=== PATIENT | female | born 1955 | race Caucasian/White ===

== ENCOUNTER → 2017-12-04 07:48 | Outpatient (CLI) | payer BC, SELFPAY ==
[2017-12-04 10:25] LABS: Anion Gap 6 (5-15); BUN 10 mg/dL (7-18); BUN/Creat Ratio 10.7 RATIO (10-20); Calcium,Total 9.1 mg/dL (8.5-10.1); Chloride 104 mmol/L (98-107); Creatinine, Serum 0.94 mg/dL (0.55-1.02); EST Glomerular Filtration Rate 64 mL/min (>60); Est Glom Filt Rate - Afr Amer 78 mL/min (>60); Glucose 84 mg/dL (74-106); Potassium 4.1 mmol/L (3.5-5.1); Sodium Level 140 mmol/L (136-145); T4 Free Direct 1.05 ng/dL (0.76-1.46); Thyroid Stim Hormone (TSH) 5.16 uIU/mL (0.358-3.74)
== END ==
PROVIDERS: Family Provider Family Medicine; PCP Family Medicine; Visit Provider Family Medicine
DX: I10 Essential (primary) hypertension (principal); E03.9 Hypothyroidism, unspecified
CPT/HCPCS: 36415; 80048; 84439; 84443

== ENCOUNTER → 2018-09-04 | Outpatient (CLI) | payer BC, SELFPAY ==
[2018-09-04 17:57] LABS: T4 Free Direct 1.27 ng/dL (0.76-1.46); Thyroid Stim Hormone (TSH) 1.11 uIU/mL (0.358-3.74)
== END | disposition home or self-care (01) ==
LOC: MFPLAB 16:03
PROVIDERS: Family Provider Family Medicine; PCP Family Medicine; Referring Provider Family Medicine; Visit Provider Family Medicine
DX: E03.9 Hypothyroidism, unspecified (principal)
CPT/HCPCS: 36415; 84439; 84443

== ENCOUNTER → 2019-03-10 | Outpatient (CLI) | payer BC, SELFPAY ==
[2019-03-10 18:17] LABS: Vitamin B12 574 pg/mL (211-911); Vitamin D,25 Hydroxy 23.8 ng/mL (29.95-100.01)
[2019-03-10 18:35] LABS: ALB/GLOB Ratio 1.2 RATIO (0.9-2.4); AST(SGOT) 23 U/L (15-37); Alanine Aminotransfer ALT/SGPT 36 U/L (13-56); Albumin, Serum 3.9 g/dL (3.2-5.0); Alkaline Phosphatase 122 U/L (45-117); Anion Gap 7 (5-15); BUN 22 mg/dL (7-18); BUN/Creat Ratio 26.1 RATIO (10-20); Calcium,Total 9.2 mg/dL (8.5-10.1); Chloride 103 mmol/L (98-107); Cholesterol 183 mg/dL (200); Creatinine, Serum 0.84 mg/dL (0.55-1.02); EST Glomerular Filtration Rate 72 mL/min (>60); Est Glom Filt Rate - Afr Amer 88 mL/min (>60); Globulin 3.3 g/dL (2.2-4.2); Glucose 88 mg/dL (74-106); High Density Lipoprotein 58 mg/dL; Potassium 4.4 mmol/L (3.5-5.1); Protein, Total 7.2 g/dL (6.4-8.2); Sodium Level 136 mmol/L (136-145); T4 Free Direct 1.07 ng/dL (0.76-1.46); Thyroid Stim Hormone (TSH) 3.48 uIU/mL (0.358-3.74); Triglycerides 319 mg/dL; Very Low Density Lipoprotein 64 mg/dL (5-40)
== END | disposition home or self-care (01) ==
LOC: MFPLAB 16:09
PROVIDERS: Family Provider Family Medicine; PCP Family Medicine; Visit Provider Family Medicine
DX: E03.9 Hypothyroidism, unspecified (principal); I10 Essential (primary) hypertension; F32.9 Major depressive disorder, single episode, unspecified; R40.0 Somnolence
CPT/HCPCS: 36415; 80053; 80061; 82306; 82607; 84439; 84443

== ENCOUNTER → 2020-09-12 17:04 | Outpatient (CLI) | payer BC, SELFPAY ==
--- NOTE | 2020-09-12 17:08 | RAD_ITS ---
STUDY: X-RAY - LEFT SHOULDER REASON FOR EXAM: Female, 65 years old. PAIN TECHNIQUE: 4 view(s) of the shoulder. COMPARISON: None. FINDINGS: There is severe degenerative arthrosis of the glenohumeral articulation. There is degenerative arthrosis of the acromioclavicular joint without inferior osseous spur formation. Normal acromion. Normal humeral head and visualized proximal humerus. The soft tissue structures are unremarkable. There is no demonstrated fracture. Normal visualized pulmonary apex. RAD/Shoulder min 2 Views IMPRESSION: Advanced degenerative disease as described. Electronically Signed: Ania Fisher MD at 2:11 EDT , Service support ,
--- NOTE | 2020-09-12 17:08 | RAD_ITS ---
STUDY: X-RAY - CERVICAL SPINE REASON FOR EXAM: Female, 65 years old. PAIN TECHNIQUE: 7 view(s) of the cervical spine were obtained, including flexion-extension views. COMPARISON: None FINDINGS: Normal anterior atlantoaxial articulation. Normal odontoid process. Normal cervical lordosis. There is multi-level endplate spondylosis. There is multi-level degenerative disc disease with multilevel disc space narrowing. There is multi-level osseous foraminal stenosis. The soft tissue structures are unremarkable. There is no demonstrated fracture of the cervical spine. There is mild anterior subluxation of C3 on C4 (2 mm) upon flexion with normal alignment on neutral and extension views. RAD/Cerv Spine Obl/Flex/Ext Comp IMPRESSION: Multilevel disc degenerative disease as described with no acute fracture or subluxation on neutral positioning. Mild anterior subluxation of C3 on C4 (2 mm) upon flexion. Electronically Signed: Ania Fisher MD at 2:10 EDT , Service support ,
== END ==
PROVIDERS: PCP Family Medicine; Referring Provider Family Medicine; Visit Provider Family Medicine
DX: M25.512 Pain in left shoulder (principal)
CPT/HCPCS: 72052; 73030

== ENCOUNTER 2021-05-04 14:30 | Outpatient (RCR) | payer MEDICARE, SELFPAY ==
[2021-04-27 14:40] VITALS: BP 163/100; PULSE 83; RESP 16; TEMP 36; BMI 45.6
--- NOTE | 2021-04-27 18:41 | PCM.WC.HP ---
History of Present Illness Date of Service: 04/27/21 Chief Complaint: Nonhealing venous leg ulcer left lower extremity History of Wound: This is a 65-year-old female who presents to the wound healing center today with complaint of a nonhealing venous leg ulcer to her left lower extremity. She has a past medical history significant for obesity, COPD, hypertension, depression anxiety, spinal stenosis, and tobacco use currently smoking 2 packs/day. The patient states that approximately 2 months ago she tripped and hit the edge of a cement step onto her left lower extremity. She describes at first it was a hematoma and then slowly opened up and has been draining copious amounts of foul-smelling clear to yellow discharge. She has been seen by her primary care for this who the patient states has placed her on 3 rounds of antibiotics but has not had any cultures done. Most recently she has been packing with Xeroform. She has not been utilizing compression though she does have a history of chronic lower extremity edema. She denies any systemic signs of infection at this time such as fever or chills. She denies any other acute concerns at this time. Past medical, family, and social history reviewed and not pertinent to the current visit and all other systems reviewed and negative with exception of those listed above. [facility] Medical History (Updated 04/28/21 @ 11:51 by Thomas Burnham NP, [employer]) Depression with anxiety HTN (hypertension) Morbid obesity Tobacco abuse Venous insufficiency Venous stasis ulcer with varicose veins of left lower extremity Home Medications [id number] 1 inh INHALATION DAILY 04/27/21 [History Last Taken Unknown] hydrochlorothiazide 25 mg PO DAILY 04/27/21 [History Last Taken Unknown] hydrocodone-acetaminophen [Ida] 1 tab PO TID PRN 04/27/21 [History Last Taken Unknown] sertraline 100 mg PO DAILY 04/27/21 [History Last Taken Unknown] Allergy/AdvReac Type Severity Reaction Status Date / Time Penicillins Allergy Hives Verified 04/27/21 15:02 Social History Smoking Status: Current every day smoker ROS ROS Narrative Negative x10 systems with exception of those listed above Vital Signs Vital Signs Vital Signs: 04/27/21 14:40 Temperature 96.8 F L Temperature Source Temporal Pulse Rate 83 Respiratory Rate 16 Blood Pressure 163/100 H Blood Pressure Mean 121 Blood Pressure Source Monitor Blood Pressure Position Sitting Blood Pressure Location Right Arm Weight Weight: 300 lb Body Mass Index (BMI) 45.6 Physical Exam Const alert, oriented x3, no apparent distress, healthy appearing and well nourished Constitutional Narrative: Patient appears disheveled and unkempt General Appearance: cooperative Exam Limitations: no limitations Nutritional Appearance: morbidly obese HEENT normocephalic Head and Scalp: normal to inspection Mouth: oral and palatal mucosa normal Eyes General Eye: normal appearance of both eyes Resp normal respiratory effort, normal air movement and no use of accessory muscles Effort and Inspection: able to speak in complete sentences Auscultation: clear to auscultation bilaterally Cardio regular rate, regular rhythm, S1 normal heart sound, S2 normal heart sound, no murmurs and peripheral pulses 2+ throughout Palpation: normal PMI Rate: regular rate Heart Sounds: S1 normal and S2 normal GI normal to inspection, nondistended, normoactive bowel sounds, soft to palpation, non-tender and non-distended Palpation: soft Extremity normal to inspection and full ROM General Extremity: normal exam except as noted Skin Skin Narrative: 2+ pitting edema bilateral lower extremities, peripheral pulses are 2+, there is a large venous ulceration to left lower extremity with large amount of adherent slough and foul-smelling drainage, multiple areas of tunneling and undermining throughout the wound. Areas of tendon are exposed does not probe to bone however at this time. No erythema warmth or streaking to the surrounding tissue at this time however Neuro oriented x3 and moves all extremities Sensorium / Orientation: awake, alert, oriented to person, oriented to place and oriented to time Psych mental status grossly normal, thought process normal and denies hallucinations Appearance: grossly normal Attitude: calm Activity / Motor Behavior: appropriate eye contact Speech: normal speech Thought Process: normal thought process Thought Content: normal thought content Attention / Concentration: attention grossly intact Insight: insight good Judgement: judgement good Debridement Note Debridement Note Wound debrided: Right venous leg ulcer Laterality: Right Type of Debridement: Selective debridement Anesthesia Used: 5% Lidocaine Gel Depth: Down to and including healthy tissue and in the subcutaneous layer Percentage of wound debrided: 100 Instrument Used: 5mm curette Tissue Removed: Slough and devitalized tissue Severity: Necrosis of Muscle Amount of bleeding with debridement: Mild Bleeding Controlled with: Pressure and Compression and gauze Patient tolerated procedure: Patient tolerated procedure well Post-Debridement Measurements and Additional Note: Post-Debridement Measurements/Treatment DMITRI - Nurse 1 - General Ulcer Assessment Start: 04/27/21 14:35 Freq: Status: Active Protocol: MAURA Activity Type Activity Date Activity User E-Sign Co-Sign Detail Recorded Client Recorded Date Recorded By Document 04/27/21 14:40 ALBERT [id number] 04/27/21 14:42 ALBERT Edit Result 04/27/21 14:40 JF (1) [id number] 04/27/21 15:00 JF (1) Right - Posterior Tibial Palpable => Yes - Posterior Tibial Doppler => Multiphasic - Dorsalis Pedis Palpable => Yes - Dorsalis Pedis Doppler => Multiphasic - Hair Growth on Legs => No - Hair Growth on Toes => No - Temperature of Extremity => Warm - Capillary Refill => Less than 3 => Seconds - Dependent Rubor => Yes - Other Deformity => No - Prior Foot Ulcer => No - Charcot Joint => No - Prior Amputation => No - Thick => Yes - Discolored => Yes - Deformed => Yes - Improper Length & Hygeine => Yes Left - Posterior Tibial Palpable => Yes - Posterior Tibial Doppler => Multiphasic - Dorsalis Pedis Palpable => Yes - Dorsalis Pedis Doppler => Multiphasic - Extremity Color => Red - Hair Growth on Legs => Yes - Hair Growth on Toes => No - Temperature of Extremity => Warm - Capillary Refill => Less than 3 => Seconds - Dependent Rubor => Yes - Other Deformity => No - Prior Foot Ulcer => No - Charcot Joint => No - Prior Amputation => No - Thick => Yes - Discolored => Yes - Deformed => No - Improper Length & Hygeine => Yes Preferred language => Latvian Preferences => Verbal, => Demonstration Barriers to Learning => None Readiness To Learn => Excellent Willingness to Engage in Self Management => High Activies Readiness to Engage in Self Management => High Activities Anxiety Level => Calm Cooperation => Cooperative Perception => Coherent Interest in Health Problem => Asks Questions Education Importance => Acknowledges Need Does Patient Smoke tobacco or other => Yes substances Smoking Status => Current every day => smoker Is Patient Diabetic => No Recent Decline in Ability to Perform => Denies Any => Declines Assistive Device With Patient => walker Cultural/Buddhism Needs that may affect => No Treatment Plan Would you allow our hospital exploration driller to => No meet you for the purpose of spiritual/ emotional support? Locomotive Engineer [employer] to contact place of [employer] => No *Debridement - Person Taught => Patient - Teaching Method => Discussion, => Demonstration - Response to teaching => Return => demonstration, => Verbalize => understanding 04/27/21 14:40 WC - Today's Visit Information Type of service Initial Visit Arrival Mode Ambulatory, Walker Patient Identification Verified (Name & Yes ) Patient Requires Transmission-Based No Precautions Height and Weight Height 5 ft 8 in Weight 300 lb Weight in Pounds 300.0 lbs Body Mass Index (BMI) 45.6 BMI Classification Obese BSA - Eva 2.43 Vital Signs Temperature (97.8 F-99.1 F) 96.8 F L Temperature Source Temporal Pulse Rate (60-100) 83 Pulse Location Monitor Respiratory Rate (12-18) 16 Respiratory rate source Observation Blood Pressure (90/60-120/80) 163/100 H Blood Pressure Mean 121 Source Monitor Position Sitting Blood Pressure Location Right Arm History Since Last Visit- (Skip if this is Patient's initial visit) Left Footwear Regular Shoe Right Footwear Regular Shoe Pain Scale: 0-10 Numeric Is Patient Pain Free? Yes Lower Extremity Assessment/ Foot Assessment/ Toe Nail Assessment Right -Posterior Tibial Palpable Yes -Posterior Tibial Doppler Multiphasic -Dorsalis Pedis Palpable Yes -Dorsalis Pedis Doppler Multiphasic -Hair Growth on Legs No -Hair Growth on Toes No -Temperature of Extremity Warm -Capillary Refill Less than 3 Seconds -Dependent Rubor Yes -Other Deformity No -Prior Foot Ulcer No -Charcot Joint No -Prior Amputation No -Thick Yes -Discolored Yes -Deformed Yes -Improper Length & Hygeine Yes Left -Posterior Tibial Palpable Yes -Posterior Tibial Doppler Multiphasic -Dorsalis Pedis Palpable Yes -Dorsalis Pedis Doppler Multiphasic -Extremity Color Red -Hair Growth on Legs Yes -Hair Growth on Toes No -Temperature of Extremity Warm -Capillary Refill Less than 3 Seconds -Dependent Rubor Yes -Other Deformity No -Prior Foot Ulcer No -Charcot Joint No -Prior Amputation No -Thick Yes -Discolored Yes -Deformed No -Improper Length & Hygeine Yes Communication Assessment Preferred language Latvian Teaching Assessment Preferences Verbal, Demonstration Barriers to Learning None Readiness To Learn Excellent Willingness to Engage in Self Management High Activies Readiness to Engage in Self Management High Activities Anxiety Level Calm Cooperation Cooperative Perception Coherent Interest in Health Problem Asks Questions Education Importance Acknowledges Need Does Patient Smoke tobacco or other Yes substances Smoking Status Current every day smoker Is Patient Diabetic No Functional Assessment Recent Decline in Ability to Perform Denies Any Declines Assistive Device With Patient walker Culture/Buddhism/Locomotive Engineer [employer] Cultural/Buddhism Needs that may affect No Treatment Plan Would you allow our hospital exploration driller to No meet you for the purpose of spiritual/ emotional support? Locomotive Engineer Electric to contact place of [employer] No Teaching: Wound Center *Debridement -Person Taught Patient -Teaching Method Discussion, Demonstration -Response to teaching Return demonstration, Verbalize understanding WC - Nurse 1 - General Ulcer Measurement Start: 04/27/21 14:35 Freq: Status: Active Protocol: Activity Type Activity Date Activity User E-Sign Co-Sign Detail Recorded Client Recorded Date Recorded By Document 04/27/21 14:42 [id number] 04/27/21 14:55 04/27/21 14:42 Wound Center Nurse 1 1-left verdugo -Combined with other wound No -Current Size (cm) - Length 3.9 -Current Size (cm) - Width 5.1 -Current Size (cm) - Depth 2.8 -Total Square Cm 19.89 -Photo Taken Yes -Epithelialization Small 1-33% -Tunneling No -Undermining/Tunneling No -Circular Undermining No -Exudate Amt Large -Exudate Type Serosanguineous -Wound Margin Flat & Intact -Granulation Amt None Present (0 %) -Slough/Fibrin Yes -Necrosis Amt Large (67-100%) -Necrotic Tissue Type Necrosis of Muscle -Structure Exposed N/A -Texture (Екатерина-wound Skin Appearance) Assessed, Localized Edema -Moisture (Екатерина-wound Skin Appearance) Assessed,Dry/ Scaly -Color (Екатерина-wound Skin Appearance) Assessed -Temperature (Екатерина-wound Skin No Abnormality Appearance) (Pt Warm) -Tenderness on Palpation (Екатерина-wound No Skin Appearance) -Ulcer Cleansing Wound Cleanser -Foul Odor after Cleansing No -Anesthetic Used 4% Lidocaine Solution Lower Limb Edema Present Yes Right Calf (cm) 55.8 Right Ankle (cm) 31.7 Left Calf (cm) 55 Left Ankle (cm) 30 WC - Nurse 2 - General Ulcer CM Notes Start: 04/27/21 14:35 Freq: Status: Active Protocol: Activity Type Activity Date Activity User E-Sign Co-Sign Detail Recorded Client Recorded Date Recorded By Document 04/27/21 15:11 MW [id number] 04/27/21 15:21 MW Edit Result 04/27/21 15:11 MW (1) [id number] 04/28/21 06:47 PL (1) 1-left verdugo - Debridement, Muscle/Fascia, ea addt'l => 1 20sq cm or part thereof 04/27/21 15:11 Wound Center Nurse 2 1-left verdugo -Time 15:11 -Correct Patient Yes -Correct Side, Site, Position Yes -Correct Procedure Yes -Procedure Performed Yes -Type of Procedure Debridement -Clinical Debridement Muscle / Fascia -Tissue Removed Muscle,Fascia -Post Debridement (cm) - Length 5.5 -Post Debridement (cm) - Width 5.5 -Post Debridement (cm) - Depth 4.0 -Total Square (Post) (cm) 30.25 -Area of Debridement (cm) - Length 0.5 -Area of Debridement (cm) - Width 5.5 -Total Square (Area) (cm) 2.75 -Tunneling No -Undermining/Tunneling No -Circular Undermining No -Wound/Ulcer Outcome Not Healed -Ulcer Cleansing Rinsed/ Irrigated with Saline -Foul Odor after Cleansing No -Bioengineered Tissue No -Bleeding Controlled with Pressure -Offloading No -Treatment Response Procedure Tolerated Well -Debridement - Muscle / Fascia, 1st Yes 20sq cm -Debridement, Muscle/Fascia, ea addt'l 1 20sq cm or part thereof Pain Scale: 0-10 Numeric Is Patient Pain Free? Yes - Nurse 3 - General Ulcer D/C NN Start: 04/27/21 14:35 Freq: Status: Active Protocol: Activity Type Activity Date Activity User E-Sign Co-Sign Detail Recorded Client Recorded Date Recorded By Document 04/27/21 15:36 [id number] 04/27/21 15:36 JF 04/27/21 15:36 Wound Care Nurse 3 1-left verdugo -Ulcer Cleansing Rinsed/ Irrigated with Saline -Foul Odor after Cleansing No -Primary Dressing Applied Aquacel Rope -Primary Dressing Covered/Secured with Dry Gauze & Roll Gauze, Secured with Tape -Aquacel Rope 1 Left -Tubular Bandage Double Layer -Size of Tubigrip Used Size F -Size F ($) 2 Pain Scale: 0-10 Numeric Is Patient Pain Free? Yes WC - Visit Discharge Discharge Condition Stable Ambulatory Status Ambulatory, Walker Transportation Private Auto Medication Reconcilliation completed & Yes provided to patient/care provider Clinical Summary of Care Provided Yes Charges/Coding Visit Charges Office Visits / Consults: 12730 OV L4 New Procedures Integumentary 111xxx-113xx: 24935 Anusha musc/fascia 20 sq cm/< Add On Codes: 17272 Anusha musc/fascia add-on Assessment/Plan Assessment/Plan (1) Venous stasis ulcer with varicose veins of left lower extremity: CODE(S): I83.029 - Varicose veins of left lower extremity with ulcer of unspecified site; L97.929 - Non-pressure chronic ulcer of unspecified part of left lower leg with unspecified severity (2) Morbid obesity: CODE(S): E66.01 - Morbid (severe) obesity due to excess calories (3) HTN (hypertension): CODE(S): I10 - Essential (primary) hypertension (4) Tobacco abuse: CODE(S): Z72.0 - Tobacco use (5) Depression with anxiety: CODE(S): F41.8 - Other specified anxiety disorders (6) Venous insufficiency: CODE(S): I87.2 - Venous insufficiency (chronic) (peripheral) PLAN: Debridement performed today in clinic as annotated above. Aquacel Ag rope cover with gauze applied. At home wound-care instructions: Daily application of Aquacel Ag rope cover with gauze and also rinse daily with Dakin's solution, Change dressing once daily or more frequently as needed due to contamination. Wash wounds daily with antibacterial soap and water, rinse and dry thoroughly before each dressing change. Compression: Double layer Tubigrip's Off-loading: The patient was instructed to avoid pressure and friction on the affected areas. Reposition every 2 hours at minimum. Avoid prolonged standing and/or dangling of legs. When seated, feet should be elevated at chest level. Frequent ambulation is encouraged. Diet: Patient encouraged to increase protein intake while taking caution to avoid high carbohydrate and/or sugar intake. Smoking: The risks of smoking and benefits of smoking cessation were discussed with the patient today. The patient is encouraged to quit smoking. If smoking cessation aids are desired, the patient should contact their primary care provider to discuss appropriate options. Patient is smoking an excessive amount 2 packs/day, instructed patient that this is definitely leading to delayed wound healing. Labs/cultures/imaging: Cultures ordered and collected today. Routine baseline lab work ordered. Vascular studies ordered. Imaging ordered of the left lower extremity to rule out osteomyelitis. Discussed in detail with patient that if any of her symptoms worsen she should go to the emergency department. Follow-up: Return to clinic in 1 week for re-evaluation. Return sooner or report to the emergency room should symptoms worsen, or new symptoms arise. This note was generated with achvr dictation software. It may contain incorrect words, spelling, and punctuation that were not noted in checking the note before signing. I have spent 55 minutes today reviewing labs, records, and history. Time includes coordinating care, interpretation of tests, and counseling the patient/family. This also includes time I spent with the patient for exam, treatment plan, and education as well as documenting clinical information in the electronic health record.
--- NOTE | 2021-05-01 13:45 | RAD_ITS ---
STUDY: X-RAY - LEFT TIBIA AND FIBULA REASON FOR EXAM: Female, 65 years old. LT SKIN ULCER - OSTEOMY LITIS TECHNIQUE: 2 view(s) of the tibia and fibula were obtained. COMPARISON: None. FINDINGS: Normal visualized tibia. Normal visualized fibula. Diffuse soft tissue swelling. Laceration is seen overlying the anterior pretibial soft tissues distally. RAD/Tibia & Fibula 2 Views IMPRESSION: No bony abnormalities seen. Diffuse soft tissue swelling with evidence of laceration overlying the anterior distal aspect of the tibia. Electronically Signed: Luis Basilio MD at 14:31 EST , Service support ,
--- NOTE | 2021-05-02 10:15 | WC ---
Wound culture results from 04/28/21 reviewed per Thomas Burnham NP. Cipro and Bactrim DS sent to [facility] in [place], [place] per Thomas. Message left for patient to notify and return call with any questions.
[2021-05-04 15:11] VITALS: BP 153/86; PULSE 93; RESP 16; TEMP 35.7; BMI 45.6
--- NOTE | 2021-05-04 16:18 | PN.PCM_ITS ---
History of Present Illness Date of Service: 05/04/21 Chief Complaint: Nonhealing venous leg ulcer left lower extremity History of Wound: This is a 65-year-old female who presents to the wound healing center today with complaint of a nonhealing venous leg ulcer to her left lower extremity. She has a past medical history significant for obesity, COPD, hypertension, depression anxiety, spinal stenosis, and tobacco use currently smoking 2 packs/day. The patient states that approximately 2 months ago she tripped and hit the edge of a cement step onto her left lower extremity. She describes at first it was a hematoma and then slowly opened up and has been draining copious amounts of foul-smelling clear to yellow discharge. She has been seen by her primary care for this who the patient states has placed her on 3 rounds of antibiotics but has not had any cultures done. Most recently she has been packing with Xeroform. She has not been utilizing compression though she does have a history of chronic lower extremity edema. She denies any systemic signs of infection at this time such as fever or chills. She denies any other acute concerns at this time. Past medical, family, and social history reviewed and not pertinent to the current visit and all other systems reviewed and negative with exception of those listed above. Progress of Wound: Stable?patient does states that the smell has improved, wound cultures were reviewed and showed Serratia, staph aureus, Bacteroides and Alcaligenes, patient was started on Cipro and Bactrim which she is tolerating, she has not been utilizing the Dakin's solution Objective Data Objective Data Vital Signs: Vital Signs Temp Pulse Resp BP 96.3 F L 93 16 153/86 H 05/04/21 15:11 05/04/21 15:11 05/04/21 15:11 05/04/21 15:11 Oxygen Delivery Method Room Air Weight: 300 lb Body Mass Index (BMI) 45.6 Lab / Micro Data Micro: Microbiology 04/28/21 15:20 Wound Abcess - Leg, Left Gram Stain - Final 04/28/21 15:20 Wound Abcess - Leg, Left Wound Culture - Final Serratia marcescens Staphylococcus aureus Alcaligenes faecalis ssp faeca 04/28/21 15:20 Wound Abcess - Leg, Left Anaerobic Culture - Final Bacteroides fragilis Charges/Coding Procedures Integumentary 111xxx-113xx: [id number] Anusha subq tissue 20 sq cm/< Physical Exam Const alert, oriented x3, no apparent distress, healthy appearing and well nourished Constitutional Narrative: Patient appears disheveled and unkempt General Appearance: cooperative Exam Limitations: no limitations Nutritional Appearance: morbidly obese HEENT normocephalic Head and Scalp: normal to inspection Mouth: oral and palatal mucosa normal Eyes General Eye: normal appearance of both eyes Resp normal respiratory effort, normal air movement and no use of accessory muscles Effort and Inspection: able to speak in complete sentences Auscultation: clear to auscultation bilaterally Cardio regular rate, regular rhythm, S1 normal heart sound, S2 normal heart sound, no murmurs and peripheral pulses 2+ throughout Palpation: normal PMI Rate: regular rate Heart Sounds: S1 normal and S2 normal GI normal to inspection, nondistended, normoactive bowel sounds, soft to palpation, non-tender and non-distended Palpation: soft Extremity normal to inspection and full ROM General Extremity: normal exam except as noted Skin Skin Narrative: 2+ pitting edema bilateral lower extremities, peripheral pulses are 2+, there is a large venous ulceration to left lower extremity with large amount of adherent slough and foul-smelling drainage, multiple areas of tunneling and undermining throughout the wound. Areas of tendon are exposed does not probe to bone however at this time. No erythema warmth or streaking to the surrounding tissue at this time however Neuro oriented x3 and moves all extremities Sensorium / Orientation: awake, alert, oriented to person, oriented to place and oriented to time Psych mental status grossly normal, thought process normal and denies hallucinations Appearance: grossly normal Attitude: calm Activity / Motor Behavior: appropriate eye contact Speech: normal speech Thought Process: normal thought process Thought Content: normal thought content Attention / Concentration: attention grossly intact Insight: insight good Judgement: judgement good Debridement Note Debridement Note Wound debrided: Left venous leg ulcer Laterality: Left Type of Debridement: Excisional debridement Anesthesia Used: 5% Lidocaine Gel Depth: Down to and including healthy tissue and in the subcutaneous layer Percentage of wound debrided: 100 Instrument Used: 5mm curette and 7mm curette Tissue Removed: Slough and devitalized tissue Severity: Necrosis of Muscle Amount of bleeding with debridement: Mild Bleeding Controlled with: Pressure and Compression and gauze Patient tolerated procedure: Patient tolerated procedure well Post-Debridement Measurements and Additional Note: Post-Debridement Measurements/Treatment DMITRI - Nurse 1 - General Ulcer Assessment Start: 04/27/21 14:35 Freq: Status: Active Protocol: MAURA Activity Type Activity Date Activity User E-Sign Co-Sign Detail Recorded Client Recorded Date Recorded By Document 04/27/21 14:40 JF [id number] 04/27/21 14:42 JF Edit Result 04/27/21 14:40 JF (1) [id number] 04/27/21 15:00 JF Document 05/04/21 15:11 BMF [id number] 05/04/21 15:17 BMF (1) Right - Posterior Tibial Palpable => Yes - Posterior Tibial Doppler => Multiphasic - Dorsalis Pedis Palpable => Yes - Dorsalis Pedis Doppler => Multiphasic - Hair Growth on Legs => No - Hair Growth on Toes => No - Temperature of Extremity => Warm - Capillary Refill => Less than 3 => Seconds - Dependent Rubor => Yes - Other Deformity => No - Prior Foot Ulcer => No - Charcot Joint => No - Prior Amputation => No - Thick => Yes - Discolored => Yes - Deformed => Yes - Improper Length & Hygeine => Yes Left - Posterior Tibial Palpable => Yes - Posterior Tibial Doppler => Multiphasic - Dorsalis Pedis Palpable => Yes - Dorsalis Pedis Doppler => Multiphasic - Extremity Color => Red - Hair Growth on Legs => Yes - Hair Growth on Toes => No - Temperature of Extremity => Warm - Capillary Refill => Less than 3 => Seconds - Dependent Rubor => Yes - Other Deformity => No - Prior Foot Ulcer => No - Charcot Joint => No - Prior Amputation => No - Thick => Yes - Discolored => Yes - Deformed => No - Improper Length & Hygeine => Yes Preferred language => Dominican Preferences => Verbal, => Demonstration Barriers to Learning => None Readiness To Learn => Excellent Willingness to Engage in Self Management => High Activies Readiness to Engage in Self Management => High Activities Anxiety Level => Calm Cooperation => Cooperative Perception => Coherent Interest in Health Problem => Asks Questions Education Importance => Acknowledges Need Does Patient Smoke tobacco or other => Yes substances Smoking Status => Current every day => smoker Is Patient Diabetic => No Recent Decline in Ability to Perform => Denies Any => Declines Assistive Device With Patient => walker Cultural/Adventism Needs that may affect => No Treatment Plan Would you allow our hospital charging board operator to => No meet you for the purpose of spiritual/ emotional support? Sporting Goods Salesperson to contact place of bahai => No *Debridement - Person Taught => Patient - Teaching Method => Discussion, => Demonstration - Response to teaching => Return => demonstration, => Verbalize => understanding 04/27/21 05/04/21 14:40 15:11 WC - Today's Visit Information Type of service Initial Visit Follow-up Visit (Physician/REGISTERED NURSE SUPERVISOR ) Arrival Mode Ambulatory, Ambulatory, Walker Walker Transfer Assistance None Patient Identification Verified (Name & Yes Yes ) Patient Requires Transmission-Based No No Precautions Height and Weight Height 5 ft 8 in Weight 300 lb Weight in Pounds 300.0 lbs Body Mass Index (BMI) 45.6 45.6 BMI Classification Obese Obese BSA - Eva 2.43 Vital Signs Temperature (97.8 F-99.1 F) 96.8 F L 96.3 F L Temperature Source Temporal Temporal Pulse Rate (60-100) 83 93 Pulse Location Monitor Monitor Respiratory Rate (12-18) 16 16 Respiratory rate source Observation Observation Oxygen Delivery Method Room Air Blood Pressure (90/60-120/80) 163/100 H 153/86 H Blood Pressure Mean (mm Hg) 121 108 Source Monitor Monitor Position Sitting Sitting Blood Pressure Location Right Arm Right Forearm Have you changed medications since your No last visit? Any new allergies or adverse reactions No Had a fall/change in ADL's that may No increase risk of falls Signs or symptoms of abuse and/or No neglect since last visit Have you been in the hospital since your No last visit? Has dressing in place as prescribed Yes Has compression in place as prescribed No Has offloadiing in place as prescribed N/A Experienced any changes in pain level or No management History Since Last Visit- (Skip if this is Patient's initial visit) Left Footwear Regular Shoe Regular Shoe Right Footwear Regular Shoe Regular Shoe Pain Scale: 0-10 Numeric Is Patient Pain Free? Yes Yes Lower Extremity Assessment/ Foot Assessment/ Toe Nail Assessment Right -Posterior Tibial Palpable Yes -Posterior Tibial Doppler Multiphasic -Dorsalis Pedis Palpable Yes -Dorsalis Pedis Doppler Multiphasic -Hair Growth on Legs No -Hair Growth on Toes No -Temperature of Extremity Warm -Capillary Refill Less than 3 Seconds -Dependent Rubor Yes -Other Deformity No -Prior Foot Ulcer No -Charcot Joint No -Prior Amputation No -Thick Yes -Discolored Yes -Deformed Yes -Improper Length & Hygeine Yes Left -Posterior Tibial Palpable Yes -Posterior Tibial Doppler Multiphasic -Dorsalis Pedis Palpable Yes -Dorsalis Pedis Doppler Multiphasic -Extremity Color Red -Hair Growth on Legs Yes -Hair Growth on Toes No -Temperature of Extremity Warm -Capillary Refill Less than 3 Seconds -Dependent Rubor Yes -Other Deformity No -Prior Foot Ulcer No -Charcot Joint No -Prior Amputation No -Thick Yes -Discolored Yes -Deformed No -Improper Length & Hygeine Yes Communication Assessment Preferred language Dominican Teaching Assessment Preferences Verbal, Demonstration Barriers to Learning None Readiness To Learn Excellent Willingness to Engage in Self Management High Activies Readiness to Engage in Self Management High Activities Anxiety Level Calm Cooperation Cooperative Perception Coherent Interest in Health Problem Asks Questions Education Importance Acknowledges Need Does Patient Smoke tobacco or other Yes substances Smoking Status Current every day smoker Is Patient Diabetic No Functional Assessment Recent Decline in Ability to Perform Denies Any Declines Assistive Device With Patient walker Culture/Adventism/Sporting Goods Salesperson Cultural/Adventism Needs that may affect No Treatment Plan Would you allow our hospital charging board operator to No meet you for the purpose of spiritual/ emotional support? Sporting Goods Salesperson to contact place of bahai No Teaching: Wound Center *Debridement -Person Taught Patient -Teaching Method Discussion, Demonstration -Response to teaching Return demonstration, Verbalize understanding WC - Nurse 1 - General Ulcer Measurement Start: 04/27/21 14:35 Freq: Status: Active Protocol: Activity Type Activity Date Activity User E-Sign Co-Sign Detail Recorded Client Recorded Date Recorded By Document 04/27/21 14:42 [id number] 04/27/21 14:55 Document 05/04/21 15:11 [facility] [id number] 05/04/21 15:17 [facility] 04/27/21 05/04/21 14:42 15:11 Wound Center Nurse 1 1-left verdugo -Combined with other wound No No -Current Size (cm) - Length 3.9 4.5 -Current Size (cm) - Width 5.1 4.8 -Current Size (cm) - Depth 2.8 2.4 -Total Square Cm 19.89 21.60 -Photo Taken Yes No -Epithelialization Small 1-33% None Present -Tunneling No Yes -Tunneling Position (O'clock) 12 -Tunneling Distance (cm) 2.8 -Undermining/Tunneling No Yes -Undermining/Tunneling Starts (O'clock 10 ) -Undermining/Tunneling Ends (O'clock) 11 -Maximum Distance (cm) 1.4 -Circular Undermining No No -Exudate Amt Large Medium -Exudate Type Serosanguineous Serosanguineous -Wound Margin Flat & Intact Thickened -Granulation Amt None Present (0 Medium (34-66%) %) -Granulation Quality [place] -Slough/Fibrin Yes -Necrosis Amt Large (67-100%) Medium (34-66%) -Necrotic Tissue Type Necrosis of Adherent Slough Muscle -Structure Exposed N/A -Texture (Екатерина-wound Skin Appearance) Assessed, Assessed, Localized Edema Scarring -Moisture (Екатерина-wound Skin Appearance) Assessed,Dry/ Assessed Scaly -Color (Екатерина-wound Skin Appearance) Assessed Assessed -Temperature (Екатерина-wound Skin No Abnormality No Abnormality Appearance) (Pt Warm) (Pt Warm) -Tenderness on Palpation (Екатерина-wound No No Skin Appearance) -Ulcer Cleansing Wound Cleanser Rinsed/ Irrigated with Saline -Foul Odor after Cleansing No No -Anesthetic Used 4% Lidocaine 4% Lidocaine Solution Solution Lower Limb Edema Present Yes Yes Right Calf (cm) 55.8 Right Ankle (cm) 31.7 Left Calf (cm) 55 54 Left Ankle (cm) 30 29.2 WC - Nurse 2 - General Ulcer CM Notes Start: 04/27/21 14:35 Freq: Status: Active Protocol: Activity Type Activity Date Activity User E-Sign Co-Sign Detail Recorded Client Recorded Date Recorded By Document 04/27/21 15:11 MW [id number] 04/27/21 15:21 MW Edit Result 04/27/21 15:11 MW (1) [id number] 04/28/21 06:47 PL Document 05/04/21 15:22 MW [id number] 05/04/21 15:27 MW (1) 1-left verdugo - Debridement, Muscle/Fascia, ea addt'l => 1 20sq cm or part thereof 04/27/21 05/04/21 15:11 15:22 Wound Center Nurse 2 1-left verdugo -Time 15:11 15:23 -Correct Patient Yes Yes -Correct Side, Site, Position Yes Yes -Correct Procedure Yes Yes -Procedure Performed Yes Yes -Type of Procedure Debridement Debridement -Clinical Debridement Muscle / Fascia Subcutaneous -Tissue Removed Muscle,Fascia Subcutaneous -Post Debridement (cm) - Length 5.5 5.0 -Post Debridement (cm) - Width 5.5 6.0 -Post Debridement (cm) - Depth 4.0 3.5 -Total Square (Post) (cm) 30.25 30.00 -Area of Debridement (cm) - Length 0.5 5.0 -Area of Debridement (cm) - Width 5.5 6.0 -Total Square (Area) (cm) 2.75 30.00 -Tunneling No Yes -Tunneling Position (O'clock) 12 -Tunneling Distance (cm) 4.5 -Undermining/Tunneling No No -Circular Undermining No No -Wound/Ulcer Outcome Not Healed Not Healed -Ulcer Cleansing Rinsed/ Rinsed/ Irrigated with Irrigated with Saline Saline -Foul Odor after Cleansing No No -Bioengineered Tissue No No -Bleeding Controlled with Pressure Pressure -Offloading No No -Treatment Response Procedure Procedure Tolerated Well Tolerated Well -Debridement - Subq, 1st 20sq cm Yes -Debridement, SubQ, ea addt'l 20sq cm 1 or part thereof -Debridement - Muscle / Fascia, 1st Yes 20sq cm -Debridement, Muscle/Fascia, ea addt'l 1 20sq cm or part thereof Pain Scale: 0-10 Numeric Is Patient Pain Free? Yes Yes - Nurse 3 - General Ulcer D/C NN Start: 04/27/21 14:35 Freq: Status: Active Protocol: Activity Type Activity Date Activity User E-Sign Co-Sign Detail Recorded Client Recorded Date Recorded By Document 04/27/21 15:36 [id number] 04/27/21 15:36 Document 05/04/21 15:42 [facility] [id number] 05/04/21 15:43 [facility] 04/27/21 05/04/21 15:36 15:42 Wound Care Nurse 3 1-left verdugo -Ulcer Cleansing Rinsed/ Rinsed/ Irrigated with Irrigated with Saline Saline -Foul Odor after Cleansing No No -Primary Dressing Applied Aquacel Rope Aquacel Rope, Mepilex Border -Primary Dressing Covered/Secured with Dry Gauze & Roll Gauze, Secured with Tape -Other Covering ABD -Aquacel Rope 1 1 -Mepilex Border 1 ERNIE -Tubular Bandage Double Layer -Size of Tubigrip Used Size F -Size F ($) 2 Left -Tubular Bandage Double Layer -Size of Tubigrip Used Size F -Size F ($) 2 Treatment Response Procedure Tolerated Well Pain Scale: 0-10 Numeric Is Patient Pain Free? Yes Yes WC - Visit Discharge Discharge Condition Stable Stable Ambulatory Status Ambulatory, Ambulatory, Walker Walker Transportation Private Auto Private Auto Medication Reconcilliation completed & Yes provided to patient/care provider Clinical Summary of Care Provided Yes Assessment/Plan Assessment/Plan (1) Venous stasis ulcer with varicose veins of left lower extremity: CODE(S): I83.029 - Varicose veins of left lower extremity with ulcer of unspecified site; L97.929 - Non-pressure chronic ulcer of unspecified part of left lower leg with unspecified severity (2) Morbid obesity: CODE(S): E66.01 - Morbid (severe) obesity due to excess calories (3) HTN (hypertension): CODE(S): I10 - Essential (primary) hypertension (4) Tobacco abuse: CODE(S): Z72.0 - Tobacco use (5) Depression with anxiety: CODE(S): F41.8 - Other specified anxiety disorders (6) Venous insufficiency: CODE(S): I87.2 - Venous insufficiency (chronic) (peripheral) PLAN: Debridement performed today in clinic as annotated above. Aquacel Ag rope cover with foam dressing applied. At home wound-care instructions: Daily application of Aquacel Ag rope cover withfoam dressing and also rinse daily with Dakin's solution, Change dressing once daily or more frequently as needed due to contamination. Wash wounds daily with antibacterial soap and water, rinse and dry thoroughly before each dressing change. Compression: Double layer Tubigrip's Off-loading: The patient was instructed to avoid pressure and friction on the af fected areas. Reposition every 2 hours at minimum. Avoid prolonged standing and/or dangling of legs. When seated, feet should be elevated at chest level. Frequent ambulation is encouraged. Diet: Patient encouraged to increase protein intake while taking caution to avoid high carbohydrate and/or sugar intake. Smoking: The risks of smoking and benefits of smoking cessation were discussed with the patient today. The patient is encouraged to quit smoking. If smoking cessation aids are desired, the patient should contact their primary care provider to discuss appropriate options. Patient is smoking an excessive amount 2 packs/day, instructed patient that this is definitely leading to delayed wound healing. Labs/cultures/imaging: Cultures ordered and collected prior and grew multiple bacteria, currently tolerating Cipro and Bactrim well. Routine baseline lab work ordered prior and pending. Vascular studies ordered. Imaging ordered of the left lower extremity to rule out osteomyelitis which was negative. Discussed in detail with patient that if any of her symptoms worsen she should go to the emergency department. Follow-up: Return to clinic in 1 week for re-evaluation. Return sooner or report to the emergency room should symptoms worsen, or new symptoms arise. This note was generated with [employer] dictation software. It may contain incorrect words, spelling, and punctuation that were not noted in checking the note before signing. I have spent 55 minutes today reviewing labs, records, and history. Time includes coordinating care, interpretation of tests, and counseling the patient/family. This also includes time I spent with the patient for exam, treatment plan, and education as well as documenting clinical information in the electronic health record.
== END 2021-05-12 23:59 ==
LOC: WC 14:30
PROVIDERS: PCP Family Medicine; Visit Provider Nurse Practitioner Family
DX: I83.028 Varicose veins of left lower extremity with ulcer other part of lower leg (principal); L97.823 Non-pressure chronic ulcer of other part of left lower leg with necrosis of muscle; E66.01 Morbid (severe) obesity due to excess calories; F41.8 Other specified anxiety disorders; I87.2 Venous insufficiency (chronic) (peripheral); I10 Essential (primary) hypertension; J44.9 Chronic obstructive pulmonary disease, unspecified; F17.210 Nicotine dependence, cigarettes, uncomplicated; Z68.42 Body mass index [BMI] 45.0-49.9, adult
CPT/HCPCS: 11042; 11043; 11045; 11046; 73590; 87070; 87075; 87077; 87186; 87205; 99203; G0463

== ENCOUNTER 2021-05-25 15:30 | Outpatient (RCR) | payer MEDICARE, SELFPAY ==
[2021-05-13 00:07] VITALS: BP 153/86; PULSE 93; RESP 16; TEMP 35.7; BMI 45.6
[2021-05-18 15:18] VITALS: BP 166/101; PULSE 105; RESP 22; TEMP 36.8; BMI 45.6
--- NOTE | 2021-05-18 17:21 | PCM.WC.PN ---
History of Present Illness Date of Service: 05/18/21 Chief Complaint: Nonhealing venous leg ulcer left lower extremity History of Wound: This is a 65-year-old female who presents to the wound healing center today with complaint of a nonhealing venous leg ulcer to her left lower extremity. She has a past medical history significant for obesity, COPD, hypertension, depression anxiety, spinal stenosis, and tobacco use currently smoking 2 packs/day. The patient states that approximately 2 months ago she tripped and hit the edge of a cement step onto her left lower extremity. She describes at first it was a hematoma and then slowly opened up and has been draining copious amounts of foul-smelling clear to yellow discharge. She has been seen by her primary care for this who the patient states has placed her on 3 rounds of antibiotics but has not had any cultures done. Most recently she has been packing with Xeroform. She has not been utilizing compression though she does have a history of chronic lower extremity edema. She denies any systemic signs of infection at this time such as fever or chills. She denies any other acute concerns at this time. Past medical, family, and social history reviewed and not pertinent to the current visit and all other systems reviewed and negative with exception of those listed above. Progress of Wound: No new concerns, patient has noted some improvement in size, however she still is having a significant amount of drainage and is saturating through her dressings frequently with clear/yellow drainage, will change her wound dressing order to twice a day Objective Data Objective Data Vital Signs: Vital Signs Temp Pulse Resp BP 98.2 F 105 H 22 H 166/101 H 05/18/21 15:18 05/18/21 15:18 05/18/21 15:18 05/18/21 15:18 Weight: 300 lb Body Mass Index (BMI) 45.6 Charges/Coding Procedures Integumentary 111xxx-113xx: 74210 Anusha musc/fascia 20 sq cm/< Add On Codes: 38355 Anusha musc/fascia add-on Physical Exam Const alert, oriented x3, no apparent distress, healthy appearing and well nourished Constitutional Narrative: Patient appears disheveled and unkempt General Appearance: cooperative Exam Limitations: no limitations Nutritional Appearance: morbidly obese HEENT normocephalic Head and Scalp: normal to inspection Mouth: oral and palatal mucosa normal Eyes General Eye: normal appearance of both eyes Resp normal respiratory effort, normal air movement and no use of accessory muscles Effort and Inspection: able to speak in complete sentences Auscultation: clear to auscultation bilaterally Cardio regular rate, regular rhythm, S1 normal heart sound, S2 normal heart sound, no murmurs and peripheral pulses 2+ throughout Palpation: normal PMI Rate: regular rate Heart Sounds: S1 normal and S2 normal GI normal to inspection, nondistended, normoactive bowel sounds, soft to palpation, non-tender and non-distended Palpation: soft Extremity normal to inspection and full ROM General Extremity: normal exam except as noted Skin Skin Narrative: 2+ pitting edema bilateral lower extremities, peripheral pulses are 2+, there is a large venous ulceration to left lower extremity with large amount of adherent slough and large amounts of clear/yellow drainage, multiple areas of tunneling and undermining throughout the wound. Areas of tendon are exposed does not probe to bone however at this time. No erythema warmth or streaking to the surrounding tissue at this time however Neuro oriented x3 and moves all extremities Sensorium / Orientation: awake, alert, oriented to person, oriented to place and oriented to time Psych mental status grossly normal, thought process normal and denies hallucinations Appearance: grossly normal Attitude: calm Activity / Motor Behavior: appropriate eye contact Speech: normal speech Thought Process: normal thought process Thought Content: normal thought content Attention / Concentration: attention grossly intact Insight: insight good Judgement: judgement good Debridement Note Debridement Note Wound debrided: Left venous leg ulcer Laterality: Left Type of Debridement: Excisional debridement Anesthesia Used: 5% Lidocaine Gel Depth: Down to and including healthy tissue, in the subcutaneous layer and to muscle Percentage of wound debrided: 100 Instrument Used: 5mm curette and 7mm curette Tissue Removed: Slough and devitalized tissue Severity: Fat Layer Exposed Amount of bleeding with debridement: Mild Bleeding Controlled with: Pressure Patient tolerated procedure: Patient tolerated procedure well Post-Debridement Measurements and Additional Note: Post-Debridement Measurements/Treatment - Nurse 1 - General Ulcer Assessment Start: 05/18/21 15:16 Freq: Status: Active Protocol: MAURA Activity Type Activity Date Activity User E-Sign Co-Sign Detail Recorded Client Recorded Date Recorded By Document 05/18/21 15:18 YADY [id number] 05/18/21 15:27 DL 05/18/21 15:18 - Today's Visit Information Type of service Follow-up Visit (Physician/AIR HOSE COUPLER ) Arrival Mode Ambulatory, Walker Transfer Assistance None Patient Identification Verified (Name & Yes ) Height and Weight Body Mass Index (BMI) 45.6 BMI Classification Obese Vital Signs Temperature (97.8 F-99.1 F) 98.2 F Temperature Source Temporal Pulse Rate (60-100) 105 H Pulse Location Monitor Respiratory Rate (12-18) 22 H Respiratory rate source Observation Blood Pressure (90/60-120/80) 166/101 H Blood Pressure Mean (mm Hg) 122 Source Monitor History Since Last Visit- (Skip if this is Patient's initial visit) Have you changed medications since your No last visit? Any new allergies or adverse reactions No Had a fall/change in ADL's that may No increase risk of falls Signs or symptoms of abuse and/or No neglect since last visit Have you been in the hospital since your No last visit? Has dressing in place as prescribed Yes Has compression in place as prescribed No Has offloadiing in place as prescribed N/A Experienced any changes in pain level or Yes management Pain Scale: 0-10 Numeric Is Patient Pain Free? Yes - Nurse 1 - General Ulcer Measurement Start: 05/18/21 15:16 Freq: Status: Active Protocol: Activity Type Activity Date Activity User E-Sign Co-Sign Detail Recorded Client Recorded Date Recorded By Document 05/18/21 15:18 DL [id number] 05/18/21 15:27 DL 05/18/21 15:18 Wound Center Nurse 1 1-left verdugo -Current Size (cm) - Length 4.2 -Current Size (cm) - Width 5 -Current Size (cm) - Depth 3.5 -Total Square Cm 21.0 -Photo Taken No -Exudate Amt Large -Exudate Type Serosanguineous -Wound Margin Distinct, Outline Attached -Granulation Amt Small (1-33%) -Granulation Quality [place] -Necrosis Amt Large (67-100%) -Necrotic Tissue Type Adherent Slough -Structure Exposed N/A -Texture (Екатерина-wound Skin Appearance) Localized Edema ,Scarring -Moisture (Екатерина-wound Skin Appearance) No Abnormality -Color (Екатерина-wound Skin Appearance) Erythema,Rubor -Temperature (Екатерина-wound Skin No Abnormality Appearance) (Pt Warm) -Tenderness on Palpation (Екатерина-wound No Skin Appearance) -Ulcer Cleansing Soap and Water -Foul Odor after Cleansing Yes -Anesthetic Used 4% Lidocaine Solution Left Calf (cm) 54.5 Left Ankle (cm) 29 WC - Nurse 2 - General Ulcer CM Notes Start: 05/18/21 15:16 Freq: Status: Active Protocol: Activity Type Activity Date Activity User E-Sign Co-Sign Detail Recorded Client Recorded Date Recorded By Document 05/18/21 15:56 MW [id number] 05/18/21 16:04 MW 05/18/21 15:56 Wound Center Nurse 2 1-left verdugo -Time 16:02 -Correct Patient Yes -Correct Side, Site, Position Yes -Correct Procedure Yes -Procedure Performed Yes -Type of Procedure Debridement -Clinical Debridement Muscle / Fascia -Tissue Removed Muscle,Fascia -Post Debridement (cm) - Length 4.9 -Post Debridement (cm) - Width 5.7 -Post Debridement (cm) - Depth 3.4 -Total Square (Post) (cm) 27.93 -Area of Debridement (cm) - Length 4.9 -Area of Debridement (cm) - Width 5.7 -Total Square (Area) (cm) 27.93 -Tunneling No -Undermining/Tunneling No -Circular Undermining No -Wound/Ulcer Outcome Not Healed -Ulcer Cleansing Rinsed/ Irrigated with Saline -Foul Odor after Cleansing No -Bioengineered Tissue No -Bleeding Controlled with Pressure -Offloading No -Treatment Response Procedure Tolerated Well -Debridement - Muscle / Fascia, 1st Yes 20sq cm -Debridement, Muscle/Fascia, ea addt'l 1 20sq cm or part thereof Pain Scale: 0-10 Numeric Is Patient Pain Free? Yes - Nurse 3 - General Ulcer D/C NN Start: 05/18/21 15:16 Freq: Status: Active Protocol: Activity Type Activity Date Activity User E-Sign Co-Sign Detail Recorded Client Recorded Date Recorded By Document 05/18/21 16:04 MW [id number] 05/18/21 16:07 MW 05/18/21 16:04 Wound Care Nurse 3 1-left verdugo -Ulcer Cleansing Rinsed/ Irrigated with Saline -Foul Odor after Cleansing No -Negative Pressure Wound Therapy N/A -Primary Dressing Applied Aquacel AG 4x4 -Primary Dressing Covered/Secured with Dry Gauze & Roll Gauze, Secured with Tape -Other Covering abd -Aquacel AG 4x4 1 Treatment Response Procedure Tolerated Well Pain Scale: 0-10 Numeric Is Patient Pain Free? Yes Teaching: Wound Center Dressing Your Wound -Person Taught Patient -Teaching Method Discussion, Demonstration -Response to teaching Verbalize understanding WC - Visit Discharge Discharge Condition Stable Ambulatory Status Ambulatory, Walker Transportation Private Auto Accompanied by self Medication Reconcilliation completed & No provided to patient/care provider Clinical Summary of Care Provided Yes Assessment/Plan Assessment/Plan (1) Venous stasis ulcer with varicose veins of left lower extremity: CODE(S): I83.029 - Varicose veins of left lower extremity with ulcer of unspecified site; L97.929 - Non-pressure chronic ulcer of unspecified part of left lower leg with unspecified severity (2) Morbid obesity: CODE(S): E66.01 - Morbid (severe) obesity due to excess calories (3) HTN (hypertension): CODE(S): I10 - Essential (primary) hypertension (4) Tobacco abuse: CODE(S): Z72.0 - Tobacco use (5) Depression with anxiety: CODE(S): F41.8 - Other specified anxiety disorders (6) Venous insufficiency: CODE(S): I87.2 - Venous insufficiency (chronic) (peripheral) PLAN: Debridement performed today in clinic as annotated above. Aquacel Ag rope cover with foam dressing applied. At home wound-care instructions: Twice Daily application of Aquacel Ag rope cover with foam dressing and also rinse daily with Dakin's solution, Change dressing twice daily or more frequently as needed due to contamination. Wash wounds daily with antibacterial soap and water, rinse and dry thoroughly before each dressing change. Compression: Double layer Tubigrip's Off-loading: The patient was instructed to avoid pressure and friction on the affected areas. Reposition every 2 hours at minimum. Avoid prolonged standing and/or dangling of legs. When seated, feet should be elevated at chest level. Frequent ambulation is encouraged. Diet: Patient encouraged to increase protein intake while taking caution to avoid high carbohydrate and/or sugar intake. Smoking: The risks of smoking and benefits of smoking cessation were discussed with the patient today. The patient is encouraged to quit smoking. If smoking cessation aids are desired, the patient should contact their primary care provider to discuss appropriate options. Patient is smoking an excessive amount 2 packs/day, instructed patient that this is definitely leading to delayed wound healing. Labs/cultures/imaging: Cultures ordered and collected prior and grew multiple bacteria, patient completed her Cipro and Bactrim . Routine baseline lab work ordered prior and pending. Vascular studies ordered. Imaging ordered of the left lower extremity to rule out osteomyelitis which was negative. Discussed in detail with patient that if any of her symptoms worsen she should go to the emergency department. Follow-up: Return to clinic in 1 week for re-evaluation. Return sooner or report to the emergency room should symptoms worsen, or new symptoms arise. This note was generated with [employer] dictation software. It may contain incorrect words, spelling, and punctuation that were not noted in checking the note before signing. I have spent 55 minutes today reviewing labs, records, and history. Time includes coordinating care, interpretation of tests, and counseling the patient/family. This also includes time I spent with the patient for exam, treatment plan, and education as well as documenting clinical information in the electronic health record.
--- NOTE | 2021-05-25 16:28 | PCM.WC.PN ---
History of Present Illness Date of Service: 05/25/21 Chief Complaint: Nonhealing venous leg ulcer left lower extremity History of Wound: This is a 65-year-old female who presents to the wound healing center today with complaint of a nonhealing venous leg ulcer to her left lower extremity. She has a past medical history significant for obesity, COPD, hypertension, depression anxiety, spinal stenosis, and tobacco use currently smoking 2 packs/day. The patient states that approximately 2 months ago she tripped and hit the edge of a cement step onto her left lower extremity. She describes at first it was a hematoma and then slowly opened up and has been draining copious amounts of foul-smelling clear to yellow discharge. She has been seen by her primary care for this who the patient states has placed her on 3 rounds of antibiotics but has not had any cultures done. Most recently she has been packing with Xeroform. She has not been utilizing compression though she does have a history of chronic lower extremity edema. She denies any systemic signs of infection at this time such as fever or chills. She denies any other acute concerns at this time. Past medical, family, and social history reviewed and not pertinent to the current visit and all other systems reviewed and negative with exception of those listed above. Progress of Wound: No new concerns, patient has noted some improvement in size, however she still is having a significant amount of drainage and is saturating through her dressings frequently with clear/yellow drainage, will change her wound dressing order to twice a day and cultures were recollected today as patient has completed all of her antibiotics. The misonix water debridement tool was utilized today and patient tolerated fairly. Objective Data Objective Data Vital Signs: Vital Signs Temp Pulse Resp BP 98.2 F 105 H 22 H 166/101 H 05/18/21 15:18 05/18/21 15:18 05/18/21 15:18 05/18/21 15:18 Weight: 300 lb Body Mass Index (BMI) 45.6 Charges/Coding Procedures Integumentary 111xxx-113xx: [id number] Anusha musc/fascia 20 sq cm/< Physical Exam Const alert, oriented x3, no apparent distress, healthy appearing and well nourished Constitutional Narrative: Patient appears disheveled and unkempt General Appearance: cooperative Exam Limitations: no limitations Nutritional Appearance: morbidly obese HEENT normocephalic Head and Scalp: normal to inspection Mouth: oral and palatal mucosa normal Eyes General Eye: normal appearance of both eyes Resp normal respiratory effort, normal air movement and no use of accessory muscles Effort and Inspection: able to speak in complete sentences Auscultation: clear to auscultation bilaterally Cardio regular rate, regular rhythm, S1 normal heart sound, S2 normal heart sound, no murmurs and peripheral pulses 2+ throughout Palpation: normal PMI Rate: regular rate Heart Sounds: S1 normal and S2 normal GI normal to inspection, nondistended, normoactive bowel sounds, soft to palpation, non-tender and non-distended Palpation: soft Extremity normal to inspection and full ROM General Extremity: normal exam except as noted Skin Skin Narrative: 2+ pitting edema bilateral lower extremities, peripheral pulses are 2+, there is a large venous ulceration to left lower extremity with large amount of adherent slough and moderate amounts of clear/yellow drainage, multiple areas of tunneling and undermining throughout the wound. Areas of tendon are exposed does not probe to bone however at this time. No erythema warmth or streaking to the surrounding tissue at this time however Neuro oriented x3 and moves all extremities Sensorium / Orientation: awake, alert, oriented to person, oriented to place and oriented to time Psych mental status grossly normal, thought process normal and denies hallucinations Appearance: grossly normal Attitude: calm Activity / Motor Behavior: appropriate eye contact Speech: normal speech Thought Process: normal thought process Thought Content: normal thought content Attention / Concentration: attention grossly intact Insight: insight good Judgement: judgement good Debridement Note Debridement Note Wound debrided: Left venous leg ulcer Laterality: Left Type of Debridement: Excisional debridement Anesthesia Used: 5% Lidocaine Gel Depth: Down to and including healthy tissue and in the subcutaneous layer Percentage of wound debrided: 100 Instrument Used: 5mm curette and 7mm curette Tissue Removed: Slough and devitalized tissue Severity: Fat Layer Exposed Amount of bleeding with debridement: Mild Bleeding Controlled with: Pressure Patient tolerated procedure: Patient tolerated procedure well Post-Debridement Measurements and Additional Note: Post-Debridement Measurements/Treatment DMITRI - Nurse 1 - General Ulcer Assessment Start: 05/18/21 15:16 Freq: Status: Active Protocol: MAURA Activity Type Activity Date Activity User E-Sign Co-Sign Detail Recorded Client Recorded Date Recorded By Document 05/18/21 15:18 DL [id number] 05/18/21 15:27 DL 05/18/21 15:18 WC - Today's Visit Information Type of service Follow-up Visit (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 Any new allergies or adverse reactions No Had a fall/change in ADL's that may No increase risk of falls Signs or symptoms of abuse and/or No neglect since last visit Have you been in the hospital since your No last visit? Has dressing in place as prescribed Yes Has compression in place as prescribed No Has offloadiing in place as prescribed N/A Experienced any changes in pain level or Yes management Pain Scale: 0-10 Numeric Is Patient Pain Free? Yes WC - Nurse 1 - General Ulcer Measurement Start: 05/18/21 15:16 Freq: Status: Active Protocol: Activity Type Activity Date Activity User E-Sign Co-Sign Detail Recorded Client Recorded Date Recorded By Document 05/18/21 15:18 DL [id number] 05/18/21 15:27 DL 05/18/21 15:18 Wound Center Nurse 1 1-left verdugo -Current Size (cm) - Length 4.2 -Current Size (cm) - Width 5 -Current Size (cm) - Depth 3.5 -Total Square Cm 21.0 -Photo Taken No -Exudate Amt Large -Exudate Type Serosanguineous -Wound Margin Distinct, Outline Attached -Granulation Amt Small (1-33%) -Granulation Quality [place] -Necrosis Amt Large (67-100%) -Necrotic Tissue Type Adherent Slough -Structure Exposed N/A -Texture (Екатерина-wound Skin Appearance) Localized Edema ,Scarring -Moisture (Екатерина-wound Skin Appearance) No Abnormality -Color (Екатерина-wound Skin Appearance) Erythema,Rubor -Temperature (Екатерина-wound Skin No Abnormality Appearance) (Pt Warm) -Tenderness on Palpation (Екатерина-wound No Skin Appearance) -Ulcer Cleansing Soap and Water -Foul Odor after Cleansing Yes -Anesthetic Used 4% Lidocaine Solution Left Calf (cm) 54.5 Left Ankle (cm) 29 WC - Nurse 2 - General Ulcer CM Notes Start: 05/18/21 15:16 Freq: Status: Active Protocol: Activity Type Activity Date Activity User E-Sign Co-Sign Detail Recorded Client Recorded Date Recorded By Document 05/18/21 15:56 MW [id number] 05/18/21 16:04 MW Document 05/25/21 15:54 MW [id number] 05/25/21 16:05 MW 05/18/21 05/25/21 15:56 15:54 Wound Center Nurse 2 1-left verdugo -Time 16:02 15:57 -Correct Patient Yes Yes -Correct Side, Site, Position Yes Yes -Correct Procedure Yes Yes -Procedure Performed Yes Yes -Type of Procedure Debridement Debridement -Clinical Debridement Muscle / Fascia Subcutaneous -Tissue Removed Muscle,Fascia Subcutaneous -Post Debridement (cm) - Length 4.9 5.2 -Post Debridement (cm) - Width 5.7 5.5 -Post Debridement (cm) - Depth 3.4 3.0 -Total Square (Post) (cm) 27.93 28.60 -Area of Debridement (cm) - Length 4.9 5.2 -Area of Debridement (cm) - Width 5.7 5.5 -Total Square (Area) (cm) 27.93 28.60 -Tunneling No Yes -Tunneling Position (O'clock) 12 -Tunneling Distance (cm) 2.5 -Undermining/Tunneling No No -Circular Undermining No No -Wound/Ulcer Outcome Not Healed Not Healed -Ulcer Cleansing Rinsed/ Rinsed/ Irrigated with Irrigated with Saline Saline -Foul Odor after Cleansing No No -Bioengineered Tissue No No -Bleeding Controlled with Pressure Pressure -Offloading No No -Treatment Response Procedure Procedure Tolerated Well Tolerated Well -Debridement - Subq, 1st 20sq cm Yes -Debridement, SubQ, ea addt'l 20sq cm 1 or part thereof -Debridement - Muscle / Fascia, 1st Yes 20sq cm -Debridement, Muscle/Fascia, ea addt'l 1 20sq cm or part thereof Pain Scale: 0-10 Numeric Is Patient Pain Free? Yes Yes WC - Nurse 3 - General Ulcer D/C NN Start: 05/18/21 15:16 Freq: Status: Active Protocol: Activity Type Activity Date Activity User E-Sign Co-Sign Detail Recorded Client Recorded Date Recorded By Document 05/18/21 16:04 MW [id number] 05/18/21 16:07 MW 05/18/21 16:04 Wound Care Nurse 3 1-left verdugo -Ulcer Cleansing Rinsed/ Irrigated with Saline -Foul Odor after Cleansing No -Negative Pressure Wound Therapy N/A -Primary Dressing Applied Aquacel AG 4x4 -Primary Dressing Covered/Secured with Dry Gauze & Roll Gauze, Secured with Tape -Other Covering abd -Aquacel AG 4x4 1 Treatment Response Procedure Tolerated Well Pain Scale: 0-10 Numeric Is Patient Pain Free? Yes Teaching: Wound Center Dressing Your Wound -Person Taught Patient -Teaching Method Discussion, Demonstration -Response to teaching Verbalize understanding WC - Visit Discharge Discharge Condition Stable Ambulatory Status Ambulatory, Walker Transportation Private Auto Accompanied by self Medication Reconcilliation completed & No provided to patient/care provider Clinical Summary of Care Provided Yes Assessment/Plan Assessment/Plan (1) Venous stasis ulcer with varicose veins of left lower extremity: CODE(S): I83.029 - Varicose veins of left lower extremity with ulcer of unspecified site; L97.929 - Non-pressure chronic ulcer of unspecified part of left lower leg with unspecified severity (2) Morbid obesity: CODE(S): E66.01 - Morbid (severe) obesity due to excess calories (3) HTN (hypertension): CODE(S): I10 - Essential (primary) hypertension (4) Tobacco abuse: CODE(S): Z72.0 - Tobacco use (5) Depression with anxiety: CODE(S): F41.8 - Other specified anxiety disorders (6) Venous insufficiency: CODE(S): I87.2 - Venous insufficiency (chronic) (peripheral) PLAN: Water debridement performed today in clinic as annotated above. Aquacel Ag rope cover with foam dressing applied. At home wound-care instructions: Twice Daily application of Aquacel Ag rope cover with foam dressing and also rinse daily with Dakin's solution, Change dressing twice daily or more frequently as needed due to contamination. Wash wounds daily with antibacterial soap and water, rinse and dry thoroughly before each dressing change. Compression: Double layer Tubigrip's, given the depth of her wounds will apply for a wound VAC. Off-loading: The patient was instructed to avoid pressure and friction on the affected areas. Reposition every 2 hours at minimum. Avoid prolonged standing and/or dangling of legs. When seated, feet should be elevated at chest level. Frequent ambulation is encouraged. Diet: Patient encouraged to increase protein intake while taking caution to avoid high carbohydrate and/or sugar intake. Smoking: The risks of smoking and benefits of smoking cessation were discussed with the patient today. The patient is encouraged to quit smoking. If smoking cessation aids are desired, the patient should contact their primary care provider to discuss appropriate options. Patient is smoking an excessive amount 2 packs/day, instructed patient that this is definitely leading to delayed wound healing. Labs/cultures/imaging: Cultures ordered and read collected today, patient previously completed her Cipro and Bactrim . Routine baseline lab work ordered prior and pending. Vascular studies ordered. Imaging ordered of the left lower extremity to rule out osteomyelitis which was negative. Discussed in detail with patient that if any of her symptoms worsen she should go to the emergency department. Follow-up: Return to clinic in 1 week for re-evaluation. Return sooner or report to the emergency room should symptoms worsen, or new symptoms arise. This note was generated with [employer] dictation software. It may contain incorrect words, spelling, and punctuation that were not noted in checking the note before signing. I have spent 55 minutes today reviewing labs, records, and history. Time includes coordinating care, interpretation of tests, and counseling the patient/family. This also includes time I spent with the patient for exam, treatment plan, and education as well as documenting clinical information in the electronic health record.
--- NOTE | 2021-05-30 11:44 | WC ---
Wound cultures from last week reviewed per Thomas Burnham NP. Antibiotics called to patient pharmacy per Thomas. Labs also ordered. Patient notified of culture results, antibiotics called in, and lab order. Instructed to get blood drawn before next appt at wound center. Voiced understanding.
== END 2021-06-12 23:59 ==
LOC: WC 15:30
PROVIDERS: PCP Family Medicine; Visit Provider Nurse Practitioner Family
DX: I83.029 Varicose veins of left lower extremity with ulcer of unspecified site (principal); L97.922 Non-pressure chronic ulcer of unspecified part of left lower leg with fat layer exposed; J44.9 Chronic obstructive pulmonary disease, unspecified; E66.01 Morbid (severe) obesity due to excess calories; F41.8 Other specified anxiety disorders; I10 Essential (primary) hypertension; I87.2 Venous insufficiency (chronic) (peripheral); I83.92 Asymptomatic varicose veins of left lower extremity; Z72.0 Tobacco use
CPT/HCPCS: 11042; 11043; 11045; 11046; 87070; 87075; 87077; 87186; 87205

== ENCOUNTER 2021-07-06 14:30 | Outpatient (RCR) | payer MEDICARE, SELFPAY ==
[2021-06-13 00:13] VITALS: BP 166/101; PULSE 105; RESP 22; TEMP 36.8; BMI 45.6
[2021-06-22 14:55] VITALS: BP 161/100; PULSE 95; RESP 24; TEMP 36.5; BMI 45.6
--- NOTE | 2021-06-22 16:50 | PN.PCM_ITS ---
History of Present Illness Date of Service: 06/22/21 Chief Complaint: Nonhealing venous leg ulcer left lower extremity History of Wound: This is a 65-year-old female who presents to the wound healing center today with complaint of a nonhealing venous leg ulcer to her left lower extremity. She has a past medical history significant for obesity, COPD, hypertension, depression anxiety, spinal stenosis, and tobacco use currently smoking 2 packs/day. The patient states that approximately 2 months ago she tripped and hit the edge of a cement step onto her left lower extremity. She describes at first it was a hematoma and then slowly opened up and has been draining copious amounts of foul-smelling clear to yellow discharge. She has been seen by her primary care for this who the patient states has placed her on 3 rounds of antibiotics but has not had any cultures done. Most recently she has been packing with Xeroform. She has not been utilizing compression though she does have a history of chronic lower extremity edema. She denies any systemic signs of infection at this time such as fever or chills. She denies any other acute concerns at this time. Past medical, family, and social history reviewed and not pertinent to the current visit and all other systems reviewed and negative with exception of those listed above. Progress of Wound: Stable?no new concerns, patient was seen by infectious disease who agreed with antibiotic treatment, patient denies any systemic or localized signs of infection and the wound VAC will be applied today at 125 mmHg. Of note her blood pressure was elevated today at 175/112 when she was instructed to go to her PCP for follow-up. Discussed going to the ER if any symptoms of hypertension occur. Objective Data Objective Data Vital Signs: Vital Signs Temp Pulse Resp BP 97.7 F L 95 24 H 161/100 H 06/22/21 14:55 06/22/21 14:55 06/22/21 14:55 06/22/21 14:55 Weight: 300 lb Body Mass Index (BMI) 45.6 Charges/Coding Procedures Integumentary 111xxx-113xx: 10628 Anusha musc/fascia 20 sq cm/< Add On Codes: 99096 Anusha musc/fascia add-on Physical Exam Const alert, oriented x3, no apparent distress, healthy appearing and well nourished Constitutional Narrative: Patient appears disheveled and unkempt General Appearance: cooperative Exam Limitations: no limitations Nutritional Appearance: morbidly obese HEENT normocephalic Head and Scalp: normal to inspection Mouth: oral and palatal mucosa normal Eyes General Eye: normal appearance of both eyes Resp normal respiratory effort, normal air movement and no use of accessory muscles Effort and Inspection: able to speak in complete sentences Auscultation: clear to auscultation bilaterally Cardio regular rate, regular rhythm, S1 normal heart sound, S2 normal heart sound, no murmurs and peripheral pulses 2+ throughout Palpation: normal PMI Rate: regular rate Heart Sounds: S1 normal and S2 normal GI normal to inspection, nondistended, normoactive bowel sounds, soft to palpation, non-tender and non-distended Palpation: soft Extremity normal to inspection and full ROM General Extremity: normal exam except as noted Skin Skin Narrative: 2+ pitting edema bilateral lower extremities, peripheral pulses are 2+, there is a large venous ulceration to left lower extremity with large amount of adherent slough and moderate amounts of clear/yellow drainage, multiple areas of tunneling and undermining throughout the wound. Areas of tendon are exposed does not probe to bone however at this time. No erythema war mth or streaking to the surrounding tissue at this time however Neuro oriented x3 and moves all extremities Sensorium / Orientation: awake, alert, oriented to person, oriented to place and oriented to time Psych mental status grossly normal, thought process normal and denies hallucinations Appearance: grossly normal Attitude: calm Activity / Motor Behavior: appropriate eye contact Speech: normal speech Thought Process: normal thought process Thought Content: normal thought content Attention / Concentration: attention grossly intact Insight: insight good Judgement: judgement good Debridement Note Debridement Note Wound debrided: Left venous leg ulcer Laterality: Left Type of Debridement: Excisional debridement Anesthesia Used: 4% Lidocaine Solution and 5% Lidocaine Gel Depth: Down to and including healthy tissue, in the subcutaneous layer and to muscle Percentage of wound debrided: 100 Instrument Used: 5mm curette Tissue Removed: Slough and devitalized tissue Severity: Fat Layer Exposed Amount of bleeding with debridement: Mild Bleeding Controlled with: Pressure Patient tolerated procedure: Patient tolerated procedure well Post-Debridement Measurements and Additional Note: Post-Debridement Measurements/Treatment DMITRI - Nurse 1 - General Ulcer Assessment Start: 06/22/21 14:55 Freq: Status: Active Protocol: MAURA Activity Type Activity Date Activity User E-Sign Co-Sign Detail Recorded Client Recorded Date Recorded By Document 06/22/21 14:55 JF [id number] 06/22/21 15:04 06/22/21 14:55 WC - Today's Visit Information Type of service Follow-up Visit (Physician/[employer] ) Arrival Mode Ambulatory, Walker Patient Identification Verified (Name & Yes ) Patient Requires Transmission-Based No Precautions Height and Weight Body Mass Index (BMI) 45.6 BMI Classification Obese Vital Signs Temperature (97.8 F-99.1 F) 97.7 F L Temperature Source Temporal Pulse Rate (60-100) 95 Pulse Location Monitor Respiratory Rate (12-18) 24 H Respiratory rate source Observation Blood Pressure (90/60-120/80) 161/100 H Blood Pressure Mean (mm Hg) 120 Source Monitor Position Semi-Fowlers Blood Pressure Location Right Forearm History Since Last Visit- (Skip if this is Patient's initial visit) Have you changed medications since your No last visit? Any new allergies or adverse reactions No Had a fall/change in ADL's that may No increase risk of falls Signs or symptoms of abuse and/or No neglect since last visit Have you been in the hospital since your No last visit? Has dressing in place as prescribed Yes Has compression in place as prescribed No Has offloadiing in place as prescribed N/A Experienced any changes in pain level or No management Left Footwear Regular Shoe Right Footwear Regular Shoe Pain Scale: 0-10 Numeric Is Patient Pain Free? Yes - Nurse 1 - General Ulcer Measurement Start: 06/22/21 14:55 Freq: Status: Active Protocol: Activity Type Activity Date Activity User E-Sign Co-Sign Detail Recorded Client Recorded Date Recorded By Document 06/22/21 14:55 JF [id number] 06/22/21 15:04 JF 06/22/21 14:55 Wound Center Nurse 1 1-left verdugo -Combined with other wound No -Current Size (cm) - Length 4.0 -Current Size (cm) - Width 4.7 -Current Size (cm) - Depth 2.0 -Total Square Cm 18.80 -Photo Taken Yes -Tunneling Yes -Tunneling Position (O'clock) 11 -Tunneling Distance (cm) 3.5 -Undermining/Tunneling No -Circular Undermining No -Exudate Amt Large -Exudate Type Serosanguineous -Wound Margin Flat & Intact -Granulation Amt Large (67-100%) -Granulation Quality Red -Slough/Fibrin Yes -Necrosis Amt Medium (34-66%) -Necrotic Tissue Type Adherent Slough -Structure Exposed N/A -Texture (Екатерина-wound Skin Appearance) Assessed, Localized Edema -Moisture (Екатерина-wound Skin Appearance) Assessed,Dry/ Scaly -Color (Екатерина-wound Skin Appearance) Assessed -Temperature (Екатерина-wound Skin No Abnormality Appearance) (Pt Warm) -Tenderness on Palpation (Екатерина-wound Yes Skin Appearance) -Ulcer Cleansing Wound Cleanser -Foul Odor after Cleansing No -Anesthetic Used 4% Lidocaine Solution Lower Limb Edema Present Yes Left Calf (cm) 54 Left Ankle (cm) 29.9 WC - Nurse 2 - General Ulcer CM Notes Start: 06/22/21 14:55 Freq: Status: Active Protocol: Activity Type Activity Date Activity User E-Sign Co-Sign Detail Recorded Client Recorded Date Recorded By Document 06/22/21 15:12 MW [id number] 06/22/21 15:16 MW 06/22/21 15:12 Wound Center Nurse 2 1-left verdugo -Time 15:13 -Correct Patient Yes -Correct Side, Site, Position Yes -Correct Procedure Yes -Procedure Performed Yes -Type of Procedure Debridement -Clinical Debridement Muscle / Fascia -Tissue Removed Muscle,Fascia -Post Debridement (cm) - Length 5.5 -Post Debridement (cm) - Width 5.5 -Post Debridement (cm) - Depth 4.5 -Total Square (Post) (cm) 30.25 -Area of Debridement (cm) - Length 5.5 -Area of Debridement (cm) - Width 5.5 -Total Square (Area) (cm) 30.25 -Tunneling Yes -Tunneling Position (O'clock) 12 -Tunneling Distance (cm) 2 -Undermining/Tunneling No -Circular Undermining No -Wound/Ulcer Outcome Not Healed -Ulcer Cleansing Rinsed/ Irrigated with Saline -Foul Odor after Cleansing No -Bioengineered Tissue No -Bleeding Controlled with Pressure -Offloading No -Treatment Response Procedure Tolerated Well -Debridement - Muscle / Fascia, 1st Yes 20sq cm -Debridement, Muscle/Fascia, ea addt'l 1 20sq cm or part thereof Pain Scale: 0-10 Numeric Is Patient Pain Free? Yes WC - Nurse 3 - General Ulcer D/C NN Start: 06/22/21 14:55 Freq: Status: Active Protocol: Activity Type Activity Date Activity User E-Sign Co-Sign Detail Recorded Client Recorded Date Recorded By Document 06/22/21 15:53 JF [id number] 06/22/21 15:54 JF Edit Result 06/22/21 15:53 JF (1) [id number] 06/23/21 07:00 PL (1) 1-left verdugo - NPWT Application Charge NPWT </= 50 sq cm => NPWT & Debridement ($) => (nc) 06/22/21 15:53 Wound Care Nurse 3 1-left verdugo -Ulcer Cleansing Rinsed/ Irrigated with Saline -Foul Odor after Cleansing No -Negative Pressure Wound Therapy Start -Setting (mmHg) 125 -Negative Pressure is Continuous -NPWT Application Charge NPWT & Debridement (nc ) Left -Compression Wrap Anderson Wrap Pain Scale: 0-10 Numeric Is Patient Pain Free? Yes WC - Visit Discharge Discharge Condition Stable Ambulatory Status Ambulatory, Walker Transportation Private Auto Medication Reconcilliation completed & Yes provided to patient/care provider Clinical Summary of Care Provided Yes Assessment/Plan Assessment/Plan (1) Venous stasis ulcer with varicose veins of left lower extremity: CODE(S): I83.029 - Varicose veins of left lower extremity with ulcer of unspecified site; L97.929 - Non-pressure chronic ulcer of unspecified part of left lower leg with unspecified severity (2) Morbid obesity: CODE(S): E66.01 - Morbid (severe) obesity due to excess calories (3) HTN (hypertension): CODE(S): I10 - Essential (primary) hypertension (4) Tobacco abuse: CODE(S): Z72.0 - Tobacco use (5) Depression with anxiety: CODE(S): F41.8 - Other specified anxiety disorders (6) Venous insufficiency: CODE(S): I87.2 - Venous insufficiency (chronic) (peripheral) PLAN: Water debridement performed today in clinic as annotated above. Wound VAC applied. At home wound-care instructions: Wound VAC change 3 times weekly at 125 mmHg with black foam, rinse with Dakin's solution for VAC changes. Compression: Double layer Tubigrip's. Off-loading: The patient was instructed to avoid pressure and friction on the affected areas. Reposition every 2 hours at minimum. Avoid prolonged standing and/or dangling of legs. When seated, feet should be elevated at chest level. Frequent ambulation is encouraged. Diet: Patient encouraged to increase protein intake while taking caution to avoid high carbohydrate and/or sugar intake. Smoking: The risks of smoking and benefits of smoking cessation were discussed with the patient today. The patient is encouraged to quit smoking. If smoking cessation aids are desired, the patient should contact their primary care provider to discuss appropriate options. Patient is smoking an excessive amount 2 packs/day, instructed patient that this is definitely leading to delayed wound healing. Labs/cultures/imaging: Cultures ordered previously and she was seen by infectious disease and patient previously completed her Cipro and Bactrim . Routine baseline lab work ordered prior and pending. Vascular studies ordered. Imaging ordered of the left lower extremity to rule out osteomyelitis which was negative. Discussed in detail with patient that if any of her symptoms worsen she should go to the emergency department. Follow-up: Return to clinic in 1 week for re-evaluation. Return sooner or report to the emergency room should symptoms worsen, or new symptoms arise. This note was generated with [employer] dictation software. It may contain incorrect words, spelling, and punctuation that were not noted in checking the note before signing. I have spent 55 minutes today reviewing labs, records, and history. Time includes coordinating care, interpretation of tests, and counseling the patient/family. This also includes time I spent with the patient for exam, treatment plan, and education as well as documenting clinical information in the electronic health record.
[2021-06-29 13:57] VITALS: BP 156/98; PULSE 88; RESP 20; TEMP 35.7; BMI 45.6
--- NOTE | 2021-06-29 16:34 | PCM.WC.PN ---
History of Present Illness Date of Service: 06/29/21 Chief Complaint: Nonhealing venous leg ulcer left lower extremity History of Wound: This is a 65-year-old female who presents to the wound healing center today with complaint of a nonhealing venous leg ulcer to her left lower extremity. She has a past medical history significant for obesity, COPD, hypertension, depression anxiety, spinal stenosis, and tobacco use currently smoking 2 packs/day. The patient states that approximately 2 months ago she tripped and hit the edge of a cement step onto her left lower extremity. She describes at first it was a hematoma and then slowly opened up and has been draining copious amounts of foul-smelling clear to yellow discharge. She has been seen by her primary care for this who the patient states has placed her on 3 rounds of antibiotics but has not had any cultures done. Most recently she has been packing with Xeroform. She has not been utilizing compression though she does have a history of chronic lower extremity edema. She denies any systemic signs of infection at this time such as fever or chills. She denies any other acute concerns at this time. Past medical, family, and social history reviewed and not pertinent to the current visit and all other systems reviewed and negative with exception of those listed above. Progress of Wound: Stable?patient has new wounds on the right lower extremity and complains of worsening swelling with clear drainage, patient was seen by infectious disease who agreed with antibiotic treatment, patient denies any systemic or localized signs of infection and the wound VAC will be applied today at 150 mmHg. Patient does have a follow-up scheduled with her PCP next week. Encouraged her to ask about having an echocardiogram done given her significant fluid retention in her legs. May also wish to consider adjusting her Lasix therapy. She does have 4+ pitting edema on the right lower extremity and 2+ pitting edema on the left lower extremity. Given the difference in sizes and fact that the swelling on the right lower extremity acutely worsened over the last week, a stat venous duplex was ordered to rule out DVT. Objective Data Objective Data Vital Signs: Vital Signs Temp Pulse Resp BP 96.2 F L 88 20 H 156/98 H 06/29/21 13:57 06/29/21 13:57 06/29/21 13:57 06/29/21 13:57 Oxygen Delivery Method Room Air Weight: 300 lb Body Mass Index (BMI) 45.6 Charges/Coding Procedures Integumentary 111xxx-113xx: 01347 Anusha subq tissue 20 sq cm/< Add On Codes: 78904 Anusha subq tissue add-on Physical Exam Const alert, oriented x3, no apparent distress, healthy appearing and well nourished Constitutional Narrative: Patient appears disheveled and unkempt General Appearance: cooperative Exam Limitations: no limitations Nutritional Appearance: morbidly obese HEENT normocephalic Head and Scalp: normal to inspection Mouth: oral and palatal mucosa normal Eyes General Eye: normal appearance of both eyes Resp normal respiratory effort, normal air movement and no use of accessory muscles Effort and Inspection: able to speak in complete sentences Auscultation: clear to auscultation bilaterally Cardio regular rate, regular rhythm, S1 normal heart sound, S2 normal heart sound, no murmurs and peripheral pulses 2+ throughout Palpation: normal PMI Rate: regular rate Heart Sounds: S1 normal and S2 normal GI normal to inspection, nondistended, normoactive bowel sounds, soft to palpation, non-tender and non-distended Palpation: soft Extremity normal to inspection and full ROM General Extremity: normal exam except as noted Skin Skin Narrative: 2+ pitting edema bilateral lower extremities, peripheral pulses are 2+, there is a large venous ulceration to left lower extremity with large amount of adherent slough and moderate amounts of clear/yellow drainage, multiple areas of tunneling and undermining throughout the wound. Venous leg ulcer also present to the right lower extremity with adherent slough. 4+ pitting edema to the right lower extremity 2+ pitting edema to the left. No erythema warmth or streaking to the surrounding tissue at this time however Neuro oriented x3 and moves all extremities Sensorium / Orientation: awake, alert, oriented to person, oriented to place and oriented to time Psych mental status grossly normal, thought process normal and denies hallucinations Appearance: grossly normal Attitude: calm Activity / Motor Behavior: appropriate eye contact Speech: normal speech Thought Process: normal thought process Thought Content: normal thought content Attention / Concentration: attention grossly intact Insight: insight good Judgement: judgement good Debridement Note Debridement Note Wound debrided: Right VL U left VL U Type of Debridement: Excisional debridement Anesthesia Used: 4% Lidocaine Solution and 5% Lidocaine Gel Depth: Down to and including healthy tissue and in the subcutaneous layer Percentage of wound debrided: 100 Instrument Used: 5mm curette and 7mm curette Tissue Removed: Slough and devitalized tissue Severity: Fat Layer Exposed Amount of bleeding with debridement: Mild Bleeding Controlled with: Pressure and Compression and gauze Patient tolerated procedure: Patient tolerated procedure well Post-Debridement Measurements and Additional Note: Post-Debridement Measurements/Treatment - Nurse 1 - General Ulcer Assessment Start: 06/22/21 14:55 Freq: Status: Active Protocol: [email or web address] Activity Type Activity Date Activity User E-Sign Co-Sign Detail Recorded Client Recorded Date Recorded By Document 06/22/21 14:55 [id number] 06/22/21 15:04 Document 06/29/21 13:57 [facility] [id number] 06/29/21 14:14 [facility] 06/22/21 06/29/21 14:55 13:57 - Today's Visit Information Type of service Follow-up Visit Follow-up Visit (Physician/FURNITURE UPHOLSTERER APPRENTICE (Physician/FURNITURE UPHOLSTERER APPRENTICE ) ) Arrival Mode Ambulatory, Ambulatory, Walker Walker Transfer Assistance None Patient Identification Verified (Name & Yes Yes ) Patient Requires Transmission-Based No No Precautions Height and Weight Body Mass Index (BMI) 45.6 45.6 BMI Classification Obese Obese Vital Signs Temperature (97.8 F-99.1 F) 97.7 F L 96.2 F L Temperature Source Temporal Temporal Pulse Rate (60-100) 95 88 Pulse Location Monitor Monitor Respiratory Rate (12-18) 24 H 20 H Respiratory rate source Observation Observation Oxygen Delivery Method Room Air Blood Pressure (90/60-120/80) 161/100 H 156/98 H Blood Pressure Mean (mm Hg) 120 117 Source Monitor Monitor Position Semi-Fowlers Sitting Blood Pressure Location Right Forearm Left Forearm History Since Last Visit- (Skip if this is Patient's initial visit) Have you changed medications since your No No last visit? Any new allergies or adverse reactions No No Had a fall/change in ADL's that may No No increase risk of falls Signs or symptoms of abuse and/or No No neglect since last visit Have you been in the hospital since your No No last visit? Has dressing in place as prescribed Yes Yes Has compression in place as prescribed No Yes Has offloadiing in place as prescribed N/A N/A Experienced any changes in pain level or No No management Left Footwear Regular Shoe Regular Shoe Right Footwear Regular Shoe Regular Shoe Pain Scale: 0-10 Numeric Is Patient Pain Free? Yes Yes WC - Nurse 1 - General Ulcer Measurement Start: 06/22/21 14:55 Freq: Status: Active Protocol: Activity Type Activity Date Activity User E-Sign Co-Sign Detail Recorded Client Recorded Date Recorded By Document 06/22/21 14:55 [id number] 06/22/21 15:04 JF Document 06/29/21 13:57 BMF [id number] 06/29/21 14:14 BMF Edit Result 06/29/21 13:57 BMF (1) [id number] 06/29/21 14:16 BMF (1) 1-left verdugo - Combined with other wound => No - Current Size (cm) - Length => 4.6 - Current Size (cm) - Width => 4.9 - Current Size (cm) - Depth => 0.5 - Total Square Cm => 22.54 - Date of Last Picture (Recall this => 06/29/21 field) - Photo Taken => Yes - Epithelialization => None Present - Tunneling => Yes - Tunneling Position (O'clock) => 12 - Tunneling Distance (cm) => 1.7 - Undermining/Tunneling => No - Circular Undermining => No - Exudate Amt => Large - Exudate Type => Serosanguineous - Wound Margin => Distinct, Outline => Attached - Granulation Amt => Large (67-100%) - Granulation Quality => Red - Slough/Fibrin => Yes - Necrosis Amt => Small (1-33%) - Necrotic Tissue Type => Adherent Slough - Texture (Екатерина-wound Skin Appearance) => Assessed,Scarring - Moisture (Екатерина-wound Skin Appearance) => Assessed, => Maceration - Color (Екатерина-wound Skin Appearance) => Assessed - Temperature (Екатерина-wound Skin => No Abnormality (Pt Appearance) => Warm) - Tenderness on Palpation (Екатерина-wound => No Skin Appearance) - Ulcer Cleansing => Soap and Water - Anesthetic Used => 4% Lidocaine => Solution,Cetacaine Left Calf (cm) => 52.8 Left Ankle (cm) => 28.6 06/22/21 06/29/21 14:55 13:57 Wound Center Nurse 1 #2 R Verdugo Cluster -Current Size (cm) - Length 9.6 -Current Size (cm) - Width 2.5 -Current Size (cm) - Depth 0.1 -Total Square Cm 24.00 -Photo Taken Yes -Exudate Amt Large -Exudate Type Serosanguineous -Wound Margin Distinct, Outline Attached -Granulation Amt None Present (0 %) -Slough/Fibrin Yes -Necrosis Amt Large (67-100%) -Necrotic Tissue Type Adherent Slough -Structure Exposed N/A -Texture (Екатерина-wound Skin Appearance) Localized Edema -Moisture (Екатерина-wound Skin Appearance) Weeping -Color (Екатерина-wound Skin Appearance) Erythema -Temperature (Екатерина-wound Skin No Abnormality Appearance) (Pt Warm) -Tenderness on Palpation (Екатерина-wound No Skin Appearance) -Ulcer Cleansing Soap and Water -Foul Odor after Cleansing No -Anesthetic Used 4% Lidocaine Solution 1-left verdugo -Combined with other wound No No -Current Size (cm) - Length 4.0 4.6 -Current Size (cm) - Width 4.7 4.9 -Current Size (cm) - Depth 2.0 0.5 -Total Square Cm 18.80 22.54 -Date of Last Picture (Recall this 06/29/21 field) -Photo Taken Yes Yes -Epithelialization None Present -Tunneling Yes Yes -Tunneling Position (O'clock) 11 12 -Tunneling Distance (cm) 3.5 1.7 -Undermining/Tunneling No No -Circular Undermining No No -Exudate Amt Large Large -Exudate Type Serosanguineous Serosanguineous -Wound Margin Flat & Intact Distinct, Outline Attached -Granulation Amt Large (67-100%) Large (67-100%) -Granulation Quality Red Red -Slough/Fibrin Yes Yes -Necrosis Amt Medium (34-66%) Small (1-33%) -Necrotic Tissue Type Adherent Slough Adherent Slough -Structure Exposed N/A -Texture (Екатерина-wound Skin Appearance) Assessed, Assessed, Localized Edema Scarring -Moisture (Екатерина-wound Skin Appearance) Assessed,Dry/ Assessed, Scaly Maceration -Color (Екатерина-wound Skin Appearance) Assessed Assessed -Temperature (Екатерина-wound Skin No Abnormality No Abnormality Appearance) (Pt Warm) (Pt Warm) -Tenderness on Palpation (Екатерина-wound Yes No Skin Appearance) -Ulcer Cleansing Wound Cleanser Soap and Water -Foul Odor after Cleansing No -Anesthetic Used 4% Lidocaine 4% Lidocaine Solution Solution, Cetacaine Lower Limb Edema Present Yes Right Calf (cm) 53.6 Right Ankle (cm) 31.5 Left Calf (cm) 54 52.8 Left Ankle (cm) 29.9 28.6 WC - Nurse 2 - General Ulcer CM Notes Start: 06/22/21 14:55 Freq: Status: Active Protocol: Activity Type Activity Date Activity User E-Sign Co-Sign Detail Recorded Client Recorded Date Recorded By Document 06/22/21 15:12 MW [id number] 06/22/21 15:16 MW Document 06/29/21 14:44 MW [id number] 06/29/21 14:53 MW 06/22/21 06/29/21 15:12 14:44 Wound Center Nurse 2 #2 R Verdugo Cluster -Time 14:46 -Correct Patient Yes -Correct Side, Site, Position Yes -Correct Procedure Yes -Procedure Performed Yes -Type of Procedure Debridement -Clinical Debridement Subcutaneous -Tissue Removed Subcutaneous -Post Debridement (cm) - Length 3.5 -Post Debridement (cm) - Width 1.5 -Post Debridement (cm) - Depth 0.1 -Total Square (Post) (cm) 5.25 -Area of Debridement (cm) - Length 3.5 -Area of Debridement (cm) - Width 1.5 -Total Square (Area) (cm) 5.25 -Tunneling No -Undermining/Tunneling No -Circular Undermining No -Wound/Ulcer Outcome Not Healed -Ulcer Cleansing Rinsed/ Irrigated with Saline -Foul Odor after Cleansing No -Bioengineered Tissue No -Bleeding Controlled with Pressure -Offloading No -Treatment Response Procedure Tolerated Well -Debridement - Subq, 1st 20sq cm Yes -Debridement, SubQ, ea addt'l 20sq cm 1 or part thereof 1-left verdugo -Time 15:13 14:46 -Correct Patient Yes Yes -Correct Side, Site, Position Yes Yes -Correct Procedure Yes Yes -Procedure Performed Yes Yes -Type of Procedure Debridement Debridement -Clinical Debridement Muscle / Fascia Subcutaneous -Tissue Removed Muscle,Fascia Subcutaneous -Post Debridement (cm) - Length 5.5 5.7 -Post Debridement (cm) - Width 5.5 5.5 -Post Debridement (cm) - Depth 4.5 2.9 -Total Square (Post) (cm) 30.25 31.35 -Area of Debridement (cm) - Length 5.5 5.7 -Area of Debridement (cm) - Width 5.5 5.5 -Total Square (Area) (cm) 30.25 31.35 -Tunneling Yes Yes -Tunneling Position (O'clock) 12 12 -Tunneling Distance (cm) 2 2 -Undermining/Tunneling No No -Circular Undermining No No -Wound/Ulcer Outcome Not Healed Not Healed -Ulcer Cleansing Rinsed/ Rinsed/ Irrigated with Irrigated with Saline Saline -Foul Odor after Cleansing No No -Bioengineered Tissue No No -Bleeding Controlled with Pressure Pressure -Offloading No No -Treatment Response Procedure Procedure Tolerated Well Tolerated Well -Debridement - Subq, 1st 20sq cm No -Debridement - Muscle / Fascia, 1st Yes 20sq cm -Debridement, Muscle/Fascia, ea addt'l 1 20sq cm or part thereof Pain Scale: 0-10 Numeric Is Patient Pain Free? Yes Yes WC - Nurse 3 - General Ulcer D/C NN Start: 06/22/21 14:55 Freq: Status: Active Protocol: Activity Type Activity Date Activity User E-Sign Co-Sign Detail Recorded Client Recorded Date Recorded By Document 06/22/21 15:53 [id number] 06/22/21 15:54 JF Edit Result 06/22/21 15:53 JF (1) [id number] 06/23/21 07:00 PL Document 06/29/21 14:56 BMF [id number] 06/29/21 14:58 BM (1) 1-left verdugo - NPWT Application Charge NPWT </= 50 sq cm => NPWT & Debridement ($) => (nc) 06/22/21 06/29/21 15:53 14:56 Wound Care Nurse 3 #2 R Verdugo Cluster -Ulcer Cleansing Rinsed/ Irrigated with Saline -Foul Odor after Cleansing No -Primary Dressing Applied Silvercel -Other Dressing drsg per dl oil rag washer -Primary Dressing Covered/Secured with Dry Gauze & Roll Gauze, Secured with Tape,Other -Other Covering abd -Silvercel 1 1-left verdugo -Ulcer Cleansing Rinsed/ Rinsed/ Irrigated with Irrigated with Saline Saline -Foul Odor after Cleansing No No -Negative Pressure Wound Therapy Start Continue -Setting (mmHg) 125 150 -Negative Pressure is Continuous Continuous -Other Dressing vac per dl oil rag washer -NPWT Application Charge NPWT & NPWT & Debridement (nc Debridement (nc ) ) BLE -Compression Wrap Anderson Wrap Left -Compression Wrap Anderson Wrap Treatment Response Procedure Tolerated Well Pain Scale: 0-10 Numeric Is Patient Pain Free? Yes Yes WC - Visit Discharge Discharge Condition Stable Stable Ambulatory Status Ambulatory, Ambulatory, Walker Walker Transportation Private Auto Private Auto Medication Reconcilliation completed & Yes provided to patient/care provider Clinical Summary of Care Provided Yes Assessment/Plan Assessment/Plan (1) Venous stasis ulcer with varicose veins of left lower extremity: CODE(S): I83.029 - Varicose veins of left lower extremity with ulcer of unspecified site; L97.929 - Non-pressure chronic ulcer of unspecified part of left lower leg with unspecified severity (2) Morbid obesity: CODE(S): E66.01 - Morbid (severe) obesity due to excess calories (3) HTN (hypertension): CODE(S): I10 - Essential (primary) hypertension (4) Tobacco abuse: CODE(S): Z72.0 - Tobacco use (5) Depression with anxiety: CODE(S): F41.8 - Other specified anxiety disorders (6) Venous insufficiency: CODE(S): I87.2 - Venous insufficiency (chronic) (peripheral) PLAN: Water debridement performed today in clinic as annotated above. Wound VAC applied. At home wound-care instructions: Wound VAC change 3 times weekly at 150 mmHg with black foam, rinse with Dakin's solution for VAC changes. Compression: Double layer Tubigrip's or Anderson wrap. Off-loading: The patient was instructed to avoid pressure and friction on the affected areas. Reposition every 2 hours at minimum. Avoid prolonged standing and/or dangling of legs. When seated, feet should be elevated at chest level. Frequent ambulation is encouraged. Diet: Patient encouraged to increase protein intake while taking caution to avoid high carbohydrate and/or sugar intake. Smoking: The risks of smoking and benefits of smoking cessation were discussed with the patient today. The patient is encouraged to quit smoking. If smoking cessation aids are desired, the patient should contact their primary care provider to discuss appropriate options. Patient is smoking an excessive amount 2 packs/day, instructed patient that this is definitely leading to delayed wound healing. Labs/cultures/imaging: Cultures ordered previously and she was seen by infectious disease and patient previously completed her Cipro and Bactrim . Routine baseline lab work ordered prior and pending. Vascular studies ordered. Imaging ordered of the left lower extremity to rule out osteomyelitis which was negative. Discussed in detail with patient that if any of her symptoms worsen she should go to the emergency department. Follow-up: Return to clinic in 1 week for re-evaluation. Return sooner or report to the emergency room should symptoms worsen, or new symptoms arise. Discussed with patient that if any of her symptoms of right calf pain worsen she should go to the ER, stat venous duplex ordered. Patient also to follow-up with her primary care next week. This note was generated with [employer] dictation software. It may contain incorrect words, spelling, and punctuation that were not noted in checking the note before signing. I have spent 55 minutes today reviewing labs, records, and history. Time includes coordinating care, interpretation of tests, and counseling the patient/family. This also includes time I spent with the patient for exam, treatment plan, and education as well as documenting clinical information in the electronic health record.
[2021-07-06 14:33] VITALS: BP 169/89; PULSE 69; TEMP 35.7; BMI 45.6
--- NOTE | 2021-07-06 22:58 | PCM.WC.PN ---
History of Present Illness Date of Service: 07/06/21 Chief Complaint: Nonhealing venous leg ulcer left lower extremity History of Wound: This is a 65-year-old female who presents to the wound healing center today with complaint of a nonhealing venous leg ulcer to her left lower extremity. She has a past medical history significant for obesity, COPD, hypertension, depression anxiety, spinal stenosis, and tobacco use currently smoking 2 packs/day. The patient states that approximately 2 months ago she tripped and hit the edge of a cement step onto her left lower extremity. She describes at first it was a hematoma and then slowly opened up and has been draining copious amounts of foul-smelling clear to yellow discharge. She has been seen by her primary care for this who the patient states has placed her on 3 rounds of antibiotics but has not had any cultures done. Most recently she has been packing with Xeroform. She has not been utilizing compression though she does have a history of chronic lower extremity edema. She denies any systemic signs of infection at this time such as fever or chills. She denies any other acute concerns at this time. Past medical, family, and social history reviewed and not pertinent to the current visit and all other systems reviewed and negative with exception of those listed above. Progress of Wound: Stable?patient followed up with her PCP yesterday who increased her Lasix to 40 mg twice a day, patient was seen by infectious disease who agreed with antibiotic treatment, patient denies any systemic or localized signs of infection and the wound VAC will be applied today at 150 mmHg. Patient has not had her vascular studies done yet and did not get her stat venous duplex was ordered to rule out DVT which was ordered last week. Objective Data Objective Data Vital Signs: Vital Signs Temp Pulse Resp BP 96.2 F L 69 20 H 169/89 H 07/06/21 14:33 07/06/21 14:33 06/29/21 13:57 07/06/21 14:33 Oxygen Delivery Method Room Air Weight: 300 lb Body Mass Index (BMI) 45.6 Charges/Coding Procedures Integumentary 111xxx-113xx: [id number] Anusha subq tissue 20 sq cm/< Add On Codes: 48931 Anusha subq tissue add-on Physical Exam Const alert, oriented x3, no apparent distress, healthy appearing and well nourished Constitutional Narrative: Patient appears disheveled and unkempt General Appearance: cooperative Exam Limitations: no limitations Nutritional Appearance: morbidly obese HEENT normocephalic Head and Scalp: normal to inspection Mouth: oral and palatal mucosa normal Eyes General Eye: normal appearance of both eyes Resp normal respiratory effort, normal air movement and no use of accessory muscles Effort and Inspection: able to speak in complete sentences Auscultation: clear to auscultation bilaterally Cardio regular rate, regular rhythm, S1 normal heart sound, S2 normal heart sound, no murmurs and peripheral pulses 2+ throughout Palpation: normal PMI Rate: regular rate Heart Sounds: S1 normal and S2 normal GI normal to inspection, nondistended, normoactive bowel sounds, soft to palpation, non-tender and non-distended Palpation: soft Extremity normal to inspection and full ROM General Extremity: normal exam except as noted Skin Skin Narrative: 2+ pitting edema bilateral lower extremities, peripheral pulses are 2+, there is a large venous ulceration to left lower extremity with large amount of adherent slough and moderate amounts of clear/yellow drainage, multiple areas of tunneling and undermining throughout the wound. Venous leg ulcer also present to the right lower extremity with adherent slough. 3+ pitting edema to the right lower extremity 2+ pitting edema to the left. No erythema warmth or streaking to the surrounding tissue at this time however Neuro oriented x3 and moves all extremities Sensorium / Orientation: awake, alert, oriented to person, oriented to place and oriented to time Psych mental status grossly normal, thought process normal and denies hallucinations Appearance: grossly normal Attitude: calm Activity / Motor Behavior: appropriate eye contact Speech: normal speech Thought Process: normal thought process Thought Content: normal thought content Attention / Concentration: attention grossly intact Insight: insight good Judgement: judgement good Debridement Note Debridement Note Wound debrided: Right and left venous leg ulcer Type of Debridement: Excisional debridement Anesthesia Used: 4% Lidocaine Solution and 5% Lidocaine Gel Depth: Down to and including healthy tissue and in the subcutaneous layer Percentage of wound debrided: 100 Instrument Used: 5mm curette and 7mm curette Tissue Removed: Slough and devitalized tissue Severity: Fat Layer Exposed Amount of bleeding with debridement: Mild Bleeding Controlled with: Pressure Patient tolerated procedure: Patient tolerated procedure well Post-Debridement Measurements and Additional Note: Post-Debridement Measurements/Treatment WC - Nurse 1 - General Ulcer Assessment Start: 06/22/21 14:55 Freq: Status: Active Protocol: WC.LOWEXT Activity Type Activity Date Activity User E-Sign Co-Sign Detail Recorded Client Recorded Date Recorded By Document 06/22/21 14:55 [id number] 06/22/21 15:04 Document 06/29/21 13:57 [facility] [id number] 06/29/21 14:14 [facility] Document 07/06/21 14:33 CO [id number] 07/06/21 14:38 CO 06/22/21 06/29/21 07/06/21 14:55 13:57 14:33 - Today's Visit Information Type of service Follow-up Visit Follow-up Visit Follow-up Visit (Physician/SHAREPOINT APPLICATION ARCHITECT (Physician/SHAREPOINT APPLICATION ARCHITECT (Physician/SHAREPOINT APPLICATION ARCHITECT ) ) ) Arrival Mode Ambulatory, Ambulatory, Wheelchair Walker Walker Transfer Assistance None Patient Identification Verified (Name & Yes Yes Yes ) Patient Requires Transmission-Based No No No Precautions Height and Weight Body Mass Index (BMI) 45.6 45.6 45.6 BMI Classification Obese Obese Obese Vital Signs Temperature (97.8 F-99.1 F) 97.7 F L 96.2 F L 96.2 F L Temperature Source Temporal Temporal Temporal Pulse Rate (60-100) 95 88 69 Pulse Location Monitor Monitor Monitor Respiratory Rate (12-18) 24 H 20 H Respiratory rate source Observation Observation Oxygen Delivery Method Room Air Blood Pressure (90/60-120/80) 161/100 H 156/98 H 169/89 H Blood Pressure Mean (mm Hg) 120 117 115 Source Monitor Monitor Monitor Position Semi-Fowlers Sitting Blood Pressure Location Right Forearm Left Forearm History Since Last Visit- (Skip if this is Patient's initial visit) Have you changed medications since your No No No last visit? Any new allergies or adverse reactions No No No Had a fall/change in ADL's that may No No No increase risk of falls Signs or symptoms of abuse and/or No No No neglect since last visit Have you been in the hospital since your No No No last visit? Has dressing in place as prescribed Yes Yes Yes Has compression in place as prescribed No Yes Yes Has offloadiing in place as prescribed N/A N/A N/A Experienced any changes in pain level or No No No management Left Footwear Regular Shoe Regular Shoe Regular Shoe Right Footwear Regular Shoe Regular Shoe Regular Shoe Pain Scale: 0-10 Numeric Is Patient Pain Free? Yes Yes Yes WC - Nurse 1 - General Ulcer Measurement Start: 06/22/21 14:55 Freq: Status: Active Protocol: Activity Type Activity Date Activity User E-Sign Co-Sign Detail Recorded Client Recorded Date Recorded By Document 06/22/21 14:55 [id number] 06/22/21 15:04 JF Document 06/29/21 13:57 BMF [id number] 06/29/21 14:14 BMF Edit Result 06/29/21 13:57 BMF (1) [id number] 06/29/21 14:16 BMF Document 07/06/21 14:33 AK [id number] 07/06/21 14:38 AK (1) 1-left verdugo - Combined with other wound => No - Current Size (cm) - Length => 4.6 - Current Size (cm) - Width => 4.9 - Current Size (cm) - Depth => 0.5 - Total Square Cm => 22.54 - Date of Last Picture (Recall this => 06/29/21 field) - Photo Taken => Yes - Epithelialization => None Present - Tunneling => Yes - Tunneling Position (O'clock) => 12 - Tunneling Distance (cm) => 1.7 - Undermining/Tunneling => No - Circular Undermining => No - Exudate Amt => Large - Exudate Type => Serosanguineous - Wound Margin => Distinct, Outline => Attached - Granulation Amt => Large (67-100%) - Granulation Quality => Red - Slough/Fibrin => Yes - Necrosis Amt => Small (1-33%) - Necrotic Tissue Type => Adherent Slough - Texture (Екатерина-wound Skin Appearance) => Assessed,Scarring - Moisture (Екатерина-wound Skin Appearance) => Assessed, => Maceration - Color (Екатерина-wound Skin Appearance) => Assessed - Temperature (Екатерина-wound Skin => No Abnormality (Pt Appearance) => Warm) - Tenderness on Palpation (Екатерина-wound => No Skin Appearance) - Ulcer Cleansing => Soap and Water - Anesthetic Used => 4% Lidocaine => Solution,Cetacaine Left Calf (cm) => 52.8 Left Ankle (cm) => 28.6 06/22/21 06/29/21 07/06/21 14:55 13:57 14:33 Wound Center Nurse 1 #2 R Verdugo Cluster -Combined with other wound No -Current Size (cm) - Length 9.6 3 -Current Size (cm) - Width 2.5 1.2 -Current Size (cm) - Depth 0.1 0.1 -Total Square Cm 24.00 3.6 -Photo Taken Yes No -Tunneling No -Undermining/Tunneling No -Circular Undermining No -Change in Wound Grade/Stage No -Exudate Amt Large Medium -Exudate Type Serosanguineous Serous -Wound Margin Distinct, Distinct, Outline Outline Attached Attached -Granulation Amt None Present (0 Medium (34-66%) %) -Granulation Quality Pale -Slough/Fibrin Yes Yes -Necrosis Amt Large (67-100%) Small (1-33%) -Necrotic Tissue Type Adherent Slough Adherent Slough -Structure Exposed N/A N/A -Texture (Екатерина-wound Skin Appearance) Localized Edema Assessed -Moisture (Екатерина-wound Skin Appearance) Weeping Assessed, Weeping -Color (Екатерина-wound Skin Appearance) Erythema No Abnormality, Assessed -Temperature (Екатерина-wound Skin No Abnormality No Abnormality Appearance) (Pt Warm) (Pt Warm) -Tenderness on Palpation (Екатерина-wound No No Skin Appearance) -Ulcer Cleansing Soap and Water Soap and Water -Foul Odor after Cleansing No No -Anesthetic Used 4% Lidocaine 4% Lidocaine Solution Solution 1-left verdugo -Combined with other wound No No No -Current Size (cm) - Length 4.0 4.6 3.5 -Current Size (cm) - Width 4.7 4.9 5 -Current Size (cm) - Depth 2.0 0.5 1.3 -Total Square Cm 18.80 22.54 17.5 -Date of Last Picture (Recall this 06/29/21 field) -Photo Taken Yes Yes No -Epithelialization None Present None Present -Tunneling Yes Yes No -Tunneling Position (O'clock) 11 12 -Tunneling Distance (cm) 3.5 1.7 -Undermining/Tunneling No No No -Circular Undermining No No No -Change in Wound Grade/Stage No -Exudate Amt Large Large Large -Exudate Type Serosanguineous Serosanguineous Serosanguineous -Wound Margin Flat & Intact Distinct, Distinct, Outline Outline Attached Attached -Granulation Amt Large (67-100%) Large (67-100%) Medium (34-66%) -Granulation Quality Red Red [place],Red -Slough/Fibrin Yes Yes No -Necrosis Amt Medium (34-66%) Small (1-33%) None Present (0 %) -Necrotic Tissue Type Adherent Slough Adherent Slough -Structure Exposed N/A N/A -Texture (Екатерина-wound Skin Appearance) Assessed, Assessed, No Abnormality, Localized Edema Scarring Assessed -Moisture (Екатерина-wound Skin Appearance) Assessed,Dry/ Assessed, No Abnormality, Scaly Maceration Assessed -Color (Екатерина-wound Skin Appearance) Assessed Assessed No Abnormality, Assessed -Temperature (Екатерина-wound Skin No Abnormality No Abnormality No Abnormality Appearance) (Pt Warm) (Pt Warm) (Pt Warm) -Tenderness on Palpation (Екатерина-wound Yes No Yes Skin Appearance) -Ulcer Cleansing Wound Cleanser Soap and Water Soap and Water -Foul Odor after Cleansing No No -Anesthetic Used 4% Lidocaine 4% Lidocaine 4% Lidocaine Solution Solution, Solution Cetacaine Lower Limb Edema Present Yes Right Calf (cm) 53.6 49.5 Right Ankle (cm) 31.5 34 Left Calf (cm) 54 52.8 46 Left Ankle (cm) 29.9 28.6 27.5 WC - Nurse 2 - General Ulcer CM Notes Start: 06/22/21 14:55 Freq: Status: Active Protocol: Activity Type Activity Date Activity User E-Sign Co-Sign Detail Recorded Client Recorded Date Recorded By Document 06/22/21 15:12 MW [id number] 06/22/21 15:16 MW Document 06/29/21 14:44 MW [id number] 06/29/21 14:53 MW Document 07/06/21 15:07 MW [id number] 07/06/21 15:11 MW 06/22/21 06/29/21 07/06/21 15:12 14:44 15:07 Wound Center Nurse 2 #2 R Verdugo Cluster -Time 14:46 15:09 -Correct Patient Yes Yes -Correct Side, Site, Position Yes Yes -Correct Procedure Yes Yes -Procedure Performed Yes Yes -Type of Procedure Debridement Debridement -Clinical Debridement Subcutaneous Subcutaneous -Tissue Removed Subcutaneous Subcutaneous -Post Debridement (cm) - Length 3.5 3.5 -Post Debridement (cm) - Width 1.5 1.0 -Post Debridement (cm) - Depth 0.1 0.1 -Total Square (Post) (cm) 5.25 3.50 -Area of Debridement (cm) - Length 3.5 3.5 -Area of Debridement (cm) - Width 1.5 1.0 -Total Square (Area) (cm) 5.25 3.50 -Tunneling No No -Undermining/Tunneling No No -Circular Undermining No No -Wound/Ulcer Outcome Not Healed Not Healed -Ulcer Cleansing Rinsed/ Rinsed/ Irrigated with Irrigated with Saline Saline -Foul Odor after Cleansing No No -Bioengineered Tissue No No -Bleeding Controlled with Pressure Pressure -Offloading No No -Treatment Response Procedure Procedure Tolerated Well Tolerated Well -Debridement - Subq, 1st 20sq cm Yes No -Debridement, SubQ, ea addt'l 20sq cm 1 or part thereof 1-left verdugo -Time 15:13 14:46 15:09 -Correct Patient Yes Yes Yes -Correct Side, Site, Position Yes Yes Yes -Correct Procedure Yes Yes Yes -Procedure Performed Yes Yes Yes -Type of Procedure Debridement Debridement Debridement -Clinical Debridement Muscle / Fascia Subcutaneous Subcutaneous -Tissue Removed Muscle,Fascia Subcutaneous Subcutaneous -Post Debridement (cm) - Length 5.5 5.7 5.0 -Post Debridement (cm) - Width 5.5 5.5 6.0 -Post Debridement (cm) - Depth 4.5 2.9 2.0 -Total Square (Post) (cm) 30.25 31.35 30.00 -Area of Debridement (cm) - Length 5.5 5.7 5.0 -Area of Debridement (cm) - Width 5.5 5.5 6.0 -Total Square (Area) (cm) 30.25 31.35 30.00 -Tunneling Yes Yes No -Tunneling Position (O'clock) 12 12 -Tunneling Distance (cm) 2 2 -Undermining/Tunneling No No No -Circular Undermining No No No -Wound/Ulcer Outcome Not Healed Not Healed Not Healed -Ulcer Cleansing Rinsed/ Rinsed/ Rinsed/ Irrigated with Irrigated with Irrigated with Saline Saline Saline -Foul Odor after Cleansing No No No -Bioengineered Tissue No No No -Bleeding Controlled with Pressure Pressure Pressure -Offloading No No No -Treatment Response Procedure Procedure Tolerated Well Tolerated Well -Debridement - Subq, 1st 20sq cm No Yes -Debridement, SubQ, ea addt'l 20sq cm 1 or part thereof -Debridement - Muscle / Fascia, 1st Yes 20sq cm -Debridement, Muscle/Fascia, ea addt'l 1 20sq cm or part thereof Pain Scale: 0-10 Numeric Is Patient Pain Free? Yes Yes Yes WC - Nurse 3 - General Ulcer D/C NN Start: 06/22/21 14:55 Freq: Status: Active Protocol: Activity Type Activity Date Activity User E-Sign Co-Sign Detail Recorded Client Recorded Date Recorded By Document 06/22/21 15:53 JF [id number] 06/22/21 15:54 JF Edit Result 06/22/21 15:53 JF (1) [id number] 06/23/21 07:00 PL Document 06/29/21 14:56 BMF [id number] 06/29/21 14:58 BMF Document 07/06/21 15:38 AK [id number] 07/06/21 15:39 AK Edit Result 07/06/21 15:38 AK (2) [id number] 07/06/21 16:22 PL (1) 1-left verdugo - NPWT Application Charge NPWT </= 50 sq cm => NPWT & Debridement ($) => (nc) (2) #2 R Verdugo Cluster - NPWT Application Charge NPWT </= 50 sq cm => NPWT & Debridement ($) => (nc) 06/22/21 06/29/21 07/06/21 15:53 14:56 15:38 Wound Care Nurse 3 #2 R Verdugo Cluster -Ulcer Cleansing Rinsed/ Rinsed/ Irrigated with Irrigated with Saline Saline -Foul Odor after Cleansing No No -Negative Pressure Wound Therapy Continue -Setting (mmHg) 125 -Negative Pressure is Intermittent -Primary Dressing Applied Silvercel Silvercel -Other Dressing drsg per dl bleach plant operator -Primary Dressing Covered/Secured with Dry Gauze & Roll Gauze, Secured with Tape,Other -Other Covering abd -NPWT Application Charge NPWT & Debridement (nc ) -Silvercel 1 1 1-left verdugo -Ulcer Cleansing Rinsed/ Rinsed/ Irrigated with Irrigated with Saline Saline -Foul Odor after Cleansing No No -Negative Pressure Wound Therapy Start Continue -Setting (mmHg) 125 150 -Negative Pressure is Continuous Continuous -Other Dressing vac per dl bleach plant operator -NPWT Application Charge NPWT & NPWT & Debridement (nc Debridement (nc ) ) BLE -Lotion applied to leg before No compression wrap -Compression Wrap Anderson Wrap Anderson Wrap -Size of Tubigrip Used Size F Left -Compression Wrap Anderson Wrap Treatment Response Procedure Tolerated Well Pain Scale: 0-10 Numeric Is Patient Pain Free? Yes Yes Yes WC - Visit Discharge Discharge Condition Stable Stable Stable Ambulatory Status Ambulatory, Ambulatory, Walker Walker Walker Transportation Private Auto Private Auto Private Auto Medication Reconcilliation completed & Yes Yes provided to patient/care provider Clinical Summary of Care Provided Yes Yes Assessment/Plan Assessment/Plan (1) Venous stasis ulcer with varicose veins of left lower extremity: CODE(S): I83.029 - Varicose veins of left lower extremity with ulcer of unspecified site; L97.929 - Non-pressure chronic ulcer of unspecified part of left lower leg with unspecified severity (2) Morbid obesity: CODE(S): E66.01 - Morbid (severe) obesity due to excess calories (3) HTN (hypertension): CODE(S): I10 - Essential (primary) hypertension (4) Tobacco abuse: CODE(S): Z72.0 - Tobacco use (5) Depression with anxiety: CODE(S): F41.8 - Other specified anxiety disorders (6) Venous insufficiency: CODE(S): I87.2 - Venous insufficiency (chronic) (peripheral) PLAN: Water debridement performed today in clinic as annotated above. Wound VAC applied. At home wound-care instructions: Wound VAC change 3 times weekly at 150 mmHg with black foam, rinse with Dakin's solution for VAC changes, silver cell applied daily to the right VL U. Compression: Double layer Tubigrip's or Anderson wrap. Off-loading: The patient was instructed to avoid pressure and friction on the affected areas. Reposition every 2 hours at minimum. Avoid prolonged standing and/or dangling of legs. When seated, feet should be elevated at chest level. Frequent ambulation is encouraged. Diet: Patient encouraged to increase protein intake while taking caution to avoid high carbohydrate and/or sugar intake. Smoking: The risks of smoking and benefits of smoking cessation were discussed with the patient today. The patient is encouraged to quit smoking. If smoking cessation aids are desired, the patient should contact their primary care provider to discuss appropriate options. Patient is smoking an excessive amount 2 packs/day, instructed patient that this is definitely leading to delayed wound healing. Labs/cultures/imaging: Cultures ordered previously and she was seen by infectious disease and patient previously completed her Cipro and Bactrim . Routine baseline lab work ordered prior and pending. Vascular studies ordered. Imaging ordered of the left lower extremity to rule out osteomyelitis which was negative. Discussed in detail with patient that if any of her symptoms worsen she should go to the emergency department. Follow-up: Return to clinic in 1 week for re-evaluation. Return sooner or report to the emergency room should symptoms worsen, or new symptoms arise. Discussed with patient that if any of her symptoms of right calf pain worsen she should go to the ER, stat venous duplex ordered prior and patient never got done. This note was generated with [employer] dictation software. It may contain incorrect words, spelling, and punctuation that were not noted in checking the note before signing. I have spent 55 minutes today reviewing labs, records, and history. Time includes coordinating care, interpretation of tests, and counseling the patient/family. This also includes time I spent with the patient for exam, treatment plan, and education as well as documenting clinical information in the electronic health record.
== END 2021-07-10 23:59 | disposition home or self-care (01) ==
LOC: WC 14:30
PROVIDERS: PCP Family Medicine; Visit Provider Nurse Practitioner Family
DX: L97.922 Non-pressure chronic ulcer of unspecified part of left lower leg with fat layer exposed (principal); I83.029 Varicose veins of left lower extremity with ulcer of unspecified site; J44.9 Chronic obstructive pulmonary disease, unspecified; E66.01 Morbid (severe) obesity due to excess calories; I87.2 Venous insufficiency (chronic) (peripheral); I10 Essential (primary) hypertension; R60.0 Localized edema; F41.8 Other specified anxiety disorders; Z72.0 Tobacco use; I83.92 Asymptomatic varicose veins of left lower extremity
CPT/HCPCS: 11042; 11043; 11045; 11046; 97605

== ENCOUNTER 2021-07-20 14:45 | Outpatient (RCR) | payer MEDICARE, SELFPAY ==
[2021-07-11 00:19] VITALS: BP 169/89; PULSE 69; RESP 20; TEMP 35.7; BMI 45.6
[2021-07-20 14:44] VITALS: BP 128/79; PULSE 100; RESP 22; TEMP 35.9; BMI 45.6
--- NOTE | 2021-07-21 13:44 | PN.PCM_ITS ---
History of Present Illness Date of Service: 07/20/21 Chief Complaint: Nonhealing venous leg ulcer left lower extremity History of Wound: This is a 65-year-old female who presents to the wound healing center today with complaint of a nonhealing venous leg ulcer to her left lower extremity. She has a past medical history significant for obesity, COPD, hypertension, depression anxiety, spinal stenosis, and tobacco use currently smoking 2 packs/day. The patient states that approximately 2 months ago she tripped and hit the edge of a cement step onto her left lower extremity. She describes at first it was a hematoma and then slowly opened up and has been draining copious amounts of foul-smelling clear to yellow discharge. She has been seen by her primary care for this who the patient states has placed her on 3 rounds of antibiotics but has not had any cultures done. Most recently she has been packing with Xeroform. She has not been utilizing compression though she does have a history of chronic lower extremity edema. She denies any systemic signs of infection at this time such as fever or chills. She denies any other acute concerns at this time. Past medical, family, and social history reviewed and not pertinent to the current visit and all other systems reviewed and negative with exception of those listed above. Progress of Wound: Patient notes continued swelling to the right lower extremity, does state that she is compliant with her Lasix. Also notes worsening smell to the left venous leg ulcer. No fever, chills, or any other signs of infection at this time. Objective Data Objective Data Vital Signs: Vital Signs Temp Pulse Resp BP 96.7 F L 100 22 H 128/79 H 07/20/21 14:44 07/20/21 14:44 07/20/21 14:44 07/20/21 14:44 Weight: 300 lb Body Mass Index (BMI) 45.6 Lab / Micro Data Micro: Microbiology 07/20/21 15:25 Wound Abcess - Leg, Left Gram Stain - Final 07/20/21 15:25 Wound Abcess - Leg, Left Wound Culture - Preliminary Gram positive organism Charges/Coding Procedures Integumentary [id number]: [id number] Anusha subq tissue 20 sq cm/< Physical Exam Const alert, oriented x3, no apparent distress, healthy appearing and well nourished Constitutional Narrative: Patient appears disheveled and unkempt General Appearance: cooperative Exam Limitations: no limitations Nutritional Appearance: morbidly obese HEENT normocephalic Head and Scalp: normal to inspection Mouth: oral and palatal mucosa normal Eyes General Eye: normal appearance of both eyes Resp normal respiratory effort, normal air movement and no use of accessory muscles Effort and Inspection: able to speak in complete sentences Auscultation: clear to auscultation bilaterally Cardio regular rate, regular rhythm, S1 normal heart sound, S2 normal heart sound, no murmurs and peripheral pulses 2+ throughout Palpation: normal PMI Rate: regular rate Heart Sounds: S1 normal and S2 normal GI normal to inspection, nondistended, normoactive bowel sounds, soft to palpation, non-tender and non-distended Palpation: soft Extremity normal to inspection and full ROM General Extremity: normal exam except as noted Skin Skin Narrative: 2+ pitting edema bilateral lower extremities, peripheral pulses are 2+, there is a large venous ulceration to left lower extremity with large amount of adherent slough and moderate amounts of clear/yellow drainage, less tunneling and undermining throughout the wound. Venous leg ulcer also present to the right lower extremity with adherent slough. 3+ pitting edema to the right lower extremity 2+ pitting edema to the left. No erythema warmth or streaking to the surrounding tissue at this time however Neuro oriented x3 and moves all extremities Sensorium / Orientation: awake, alert, oriented to person, oriented to place and oriented to time Psych mental status grossly normal, thought process normal and denies hallucinations Appearance: grossly normal Attitude: calm Activity / Motor Behavior: appropriate eye contact Speech: normal speech Thought Process: normal thought process Thought Content: normal thought content Attention / Concentration: attention grossly intact Insight: insight good Judgement: judgement good Debridement Note Debridement Note Wound debrided: Bilateral venous leg ulcers Type of Debridement: Excisional debridement Anesthesia Used: 4% Lidocaine Solution and 5% Lidocaine Gel Depth: Down to and including healthy tissue and in the subcutaneous layer Percentage of wound debrided: 100 Instrument Used: 5mm curette Tissue Removed: Slough and devitalized tissue Severity: Fat Layer Exposed Amount of bleeding with debridement: Mild Bleeding Controlled with: Pressure Patient tolerated procedure: Patient tolerated procedure well Post-Debridement Measurements and Additional Note: Post-Debridement Measurements/Treatment DMITRI - Nurse 1 - General Ulcer Assessment Start: 07/20/21 14:44 Freq: Status: Active Protocol: WC.LOWEXT Activity Type Activity Date Activity User E-Sign Co-Sign Detail Recorded Client Recorded Date Recorded By Document 07/20/21 14:44 DL [id number] 07/20/21 14:51 DL 07/20/21 14:44 - Today's Visit Information Type of service Follow-up Visit (Physician/RESIDENTIAL SUBCONTRACTOR ) Arrival Mode Ambulatory, Walker Transfer Assistance Stretcher Patient Identification Verified (Name & Yes ) Height and Weight Body Mass Index (BMI) 45.6 BMI Classification Obese Vital Signs Temperature (97.8 F-99.1 F) 96.7 F L Temperature Source Temporal Pulse Rate (60-100) 100 Pulse Location Monitor Respiratory Rate (12-18) 22 H Respiratory rate source Observation Blood Pressure (90/60-120/80) 128/79 H Blood Pressure Mean (mm Hg) 95 Source Monitor History Since Last Visit- (Skip if this is Patient's initial visit) Have you changed medications since your No last visit? Any new allergies or adverse reactions No Had a fall/change in ADL's that may No increase risk of falls Signs or symptoms of abuse and/or No neglect since last visit Have you been in the hospital since your No last visit? Has dressing in place as prescribed Yes Has compression in place as prescribed Yes Has offloadiing in place as prescribed N/A Experienced any changes in pain level or No management Pain Scale: 0-10 Numeric Is Patient Pain Free? Yes - Nurse 1 - General Ulcer Measurement Start: 07/20/21 14:44 Freq: Status: Active Protocol: Activity Type Activity Date Activity User E-Sign Co-Sign Detail Recorded Client Recorded Date Recorded By Document 07/20/21 14:44 DL [id number] 07/20/21 14:51 DL 07/20/21 14:44 Wound Center Nurse 1 #2 R Verdugo Cluster -Current Size (cm) - Length 3.1 -Current Size (cm) - Width 2 -Current Size (cm) - Depth 0.1 -Total Square Cm 6.2 -Photo Taken No -Exudate Amt Medium -Exudate Type Serosanguineous -Wound Margin Distinct, Outline Attached -Granulation Amt None Present (0 %) -Necrosis Amt Large (67-100%) -Necrotic Tissue Type Adherent Slough -Structure Exposed N/A -Texture (Екатерина-wound Skin Appearance) Localized Edema ,Scarring -Moisture (Екатерина-wound Skin Appearance) Weeping -Color (Екатерина-wound Skin Appearance) Erythema -Temperature (Екатерина-wound Skin No Abnormality Appearance) (Pt Warm) -Tenderness on Palpation (Екатерина-wound No Skin Appearance) -Ulcer Cleansing Soap and Water -Foul Odor after Cleansing No -Anesthetic Used 4% Lidocaine Solution 1-left verdugo -Current Size (cm) - Length 3.6 -Current Size (cm) - Width 4.5 -Current Size (cm) - Depth 0.7 -Total Square Cm 16.20 -Photo Taken No -Exudate Amt Medium -Exudate Type Serosanguineous -Wound Margin Distinct, Outline Attached -Granulation Amt Medium (34-66%) -Granulation Quality Red -Necrosis Amt Medium (34-66%) -Necrotic Tissue Type Adherent Slough -Structure Exposed N/A -Texture (Екатерина-wound Skin Appearance) Scarring -Moisture (Екатерина-wound Skin Appearance) Maceration -Color (Екатерина-wound Skin Appearance) No Abnormality -Temperature (Екатерина-wound Skin No Abnormality Appearance) (Pt Warm) -Tenderness on Palpation (Екатерина-wound No Skin Appearance) -Ulcer Cleansing Soap and Water -Foul Odor after Cleansing No -Anesthetic Used 4% Lidocaine Solution Right Calf (cm) 52 Right Ankle (cm) 31 Left Calf (cm) 47.4 Left Ankle (cm) 27 WC - Nurse 2 - General Ulcer CM Notes Start: 07/20/21 14:44 Freq: Status: Active Protocol: Activity Type Activity Date Activity User E-Sign Co-Sign Detail Recorded Client Recorded Date Recorded By Document 07/20/21 15:24 MW [id number] 07/20/21 15:32 MW 07/20/21 15:24 Wound Center Nurse 2 #2 R Verdugo Cluster -Time 15:28 -Correct Patient Yes -Correct Side, Site, Position Yes -Correct Procedure Yes -Procedure Performed Yes -Type of Procedure Debridement -Clinical Debridement Subcutaneous -Tissue Removed Subcutaneous -Post Debridement (cm) - Length 3.5 -Post Debridement (cm) - Width 1.5 -Post Debridement (cm) - Depth 0.1 -Total Square (Post) (cm) 5.25 -Area of Debridement (cm) - Length 3.5 -Area of Debridement (cm) - Width 1.5 -Total Square (Area) (cm) 5.25 -Tunneling No -Undermining/Tunneling No -Circular Undermining No -Wound/Ulcer Outcome Not Healed -Ulcer Cleansing Rinsed/ Irrigated with Saline -Foul Odor after Cleansing No -Bioengineered Tissue No -Bleeding Controlled with Pressure -Offloading No -Treatment Response Procedure Tolerated Well -Debridement - Subq, 1st 20sq cm Yes -Debridement, SubQ, ea addt'l 20sq cm 1 or part thereof 1-left verdugo -Time 15:28 -Correct Patient Yes -Correct Side, Site, Position Yes -Correct Procedure Yes -Procedure Performed Yes -Type of Procedure Debridement -Clinical Debridement Subcutaneous -Tissue Removed Subcutaneous -Post Debridement (cm) - Length 5.0 -Post Debridement (cm) - Width 5.1 -Post Debridement (cm) - Depth 2.0 -Total Square (Post) (cm) 25.50 -Area of Debridement (cm) - Length 5.0 -Area of Debridement (cm) - Width 5.1 -Total Square (Area) (cm) 25.50 -Tunneling No -Undermining/Tunneling No -Circular Undermining No -Wound/Ulcer Outcome Not Healed -Ulcer Cleansing Rinsed/ Irrigated with Saline -Foul Odor after Cleansing No -Bioengineered Tissue No -Bleeding Controlled with Pressure -Offloading No -Treatment Response Procedure Tolerated Well -Debridement - Subq, 1st 20sq cm No Pain Scale: 0-10 Numeric Is Patient Pain Free? Yes Assessment/Plan Assessment/Plan (1) Venous stasis ulcer with varicose veins of left lower extremity: CODE(S): I83.029 - Varicose veins of left lower extremity with ulcer of unspecified site; L97.929 - Non-pressure chronic ulcer of unspecified part of left lower leg with unspecified severity (2) Morbid obesity: CODE(S): E66.01 - Morbid (severe) obesity due to excess calories (3) HTN (hypertension): CODE(S): I10 - Essential (primary) hypertension (4) Tobacco abuse: CODE(S): Z72.0 - Tobacco use (5) Depression with anxiety: CODE(S): F41.8 - Other specified anxiety disorders (6) Venous insufficiency: CODE(S): I87.2 - Venous insufficiency (chronic) (peripheral) PLAN: Water debridement performed today in clinic as annotated above. Wound VAC to be continued to the left venous leg ulcer, however no supplies available so packed with silver cell, silver cell to right VLU. Given the worsening discharge and smell, cultures were collected today of the left VL U.. At home wound-care instructions: Wound VAC change 3 times weekly at 150 mmHg with black foam, rinse with Dakin's solution for VAC changes, silver cell applied daily to the right VL U. Compression: Double layer Tubigrip's or Anderson wrap. Off-loading: The patient was instructed to avoid pressure and friction on the affected areas. Reposition every 2 hours at minimum. Avoid prolonged standing and/or dangling of legs. When seated, feet should be elevated at chest level. Frequent ambulation is encouraged. Diet: Patient encouraged to increase protein intake while taking caution to avoid high carbohydrate and/or sugar intake. Smoking: The risks of smoking and benefits of smoking cessation were discussed with the patient today. The patient is encouraged to quit smoking. If smoking cessation aids are desired, the patient should contact their primary care provider to discuss appropriate options. Patient is smoking an excessive amount 2 packs/day, instructed patient that this is definitely leading to delayed wound healing. Labs/cultures/imaging: Cultures ordered previously and she was seen by infectious disease and patient previously completed her Cipro and Bactrim . Routine baseline lab work ordered prior and pending. Vascular studies ordered. Imaging ordered of the left lower extremity to rule out osteomyelitis which was negative. Discussed in detail with patient that if any of her symptoms worsen she should go to the emergency department. Follow-up: Return to clinic in 1 week for re-evaluation. Return sooner or report to the emergency room should symptoms worsen, or new symptoms arise. Discussed with patient that if any of her symptoms of right calf pain worsen she should go to the ER, stat venous duplex ordered prior and patient never got done. This note was generated with [employer] dictation software. It may contain incorrect words, spelling, and punctuation that were not noted in checking the note before signing. I have spent 55 minutes today reviewing labs, records, and history. Time includes coordinating care, interpretation of tests, and counseling the patient/family. This also includes time I spent with the patient for exam, treatment plan, and education as well as documenting clinical information in the electronic health record.
--- NOTE | 2021-07-25 09:00 | WC ---
Wound culture results from 07/20/21 reviewed per Thomas Burnham NP. Clindamycin called in to [facility] in [place] per Thomas [facility]. Patient is to take an OTC probiotic also. Message left for patient.
--- NOTE | 2021-07-26 13:32 | WC ---
Anaerobic wound culture from 07/20/21 reviewed per Thomas Burnham NP. Flagyl sent in to [facility] pharmacy per Thomas [facility]. Patient notified. Voiced understanding.
== END 2021-08-10 23:59 | disposition home or self-care (01) ==
LOC: WC 14:45
PROVIDERS: PCP Family Medicine; Visit Provider Nurse Practitioner Family
DX: I87.2 Venous insufficiency (chronic) (peripheral) (principal); L97.922 Non-pressure chronic ulcer of unspecified part of left lower leg with fat layer exposed; I83.029 Varicose veins of left lower extremity with ulcer of unspecified site; J44.9 Chronic obstructive pulmonary disease, unspecified; E66.01 Morbid (severe) obesity due to excess calories; I83.92 Asymptomatic varicose veins of left lower extremity; I10 Essential (primary) hypertension; F41.8 Other specified anxiety disorders; Z72.0 Tobacco use
CPT/HCPCS: 11042; 11045; 87070; 87075; 87077; 87186; 87205